=== PATIENT | female | born 1980 | race Caucasian/White ===

== ENCOUNTER 2018-01-02 23:06 | Emergency (ER) | payer BC, MEDICARE ==
[~2018-01-02] VITALS: Ht 170.2 cm; Wt 110.7 kg
[2018-01-02] MEDS ORDERED: ONDANSETRON HCL INJ 2 MG/ML VIAL IV STA (23:40)
[2018-01-02] MEDS ORDERED: SODIUM CHLORIDE 0.9% 1000ML 1,000 ML IV STA (23:40)
[2018-01-02] MEDS ORDERED: PANTOPRAZOLE 40 MG 10ML VIAL IV STA (23:40)
[2018-01-02] MEDS ORDERED: MECLIZINE HCL 12.5 MG TAB PO ONE (23:45)
[2018-01-03 00:28] LABS: BASOPHILS # (AUTO) 0.1 (0.0-0.1); BASOPHILS % 0.4 % (0.0-1.0); EOSINOPHILS # (AUTO) 0.4 (0.0-0.4); EOSINOPHILS % 3.1 % (0.0-6.0); HEMOGLOBIN 13.7 g/dL (12.0-16.0); LYMPHOCYTES # (AUTO) 3.4 (1.0-3.2); LYMPHOCYTES % 29.5 % (18.0-39.1); MEAN CORPUSCULAR HEMOGLOBIN 31.4 pg (28-32); MEAN CORPUSCULAR HGB CONC 33.4 g/dL (31-35); MEAN CORPUSCULAR VOLUME 93.8 fL (81-99); MONOCYTES # (AUTO) 0.6 (0.2-0.8); MONOCYTES % 4.8 % (4.4-11.3); NEUTROPHILS # (AUTO) 7.1 (2.1-6.9); NEUTROPHILS % 61.9 % (38.7-80.0); PLATELET COUNT 250 x10e3/uL (140-360); RED BLOOD COUNT 4.37 x10e6/uL (3.6-5.1); RED CELL DISTRIBUTION WIDTH 13.3 % (11.7-14.4)
--- NOTE | 2018-01-03 00:33 | Diagnostic Imaging Report ---
EXAM: CHEST SINGLE (PORTABLE), AP 1 view INDICATION: Vertigo for 2 days COMPARISON: None FINDINGS: LINES/TUBES: None LUNGS: No consolidations or edema. PLEURA: No effusions or pneumothorax. HEART AND MEDIASTINUM: Normal size and contour. BONES AND SOFT TISSUES: No acute findings. IMPRESSION: No acute thoracic abnormality. Signed by: Dr. Lisa Lara M.D. on 01/03/2018 12:30 AM
[2018-01-03 00:43] LABS: ALANINE AMINOTRANSFERASE 19 IU/L (0-55); ALBUMIN 4.2 g/dL (3.5-5.0); ALBUMIN/GLOBULIN RATIO 1.1 (0.8-2.0); ALKALINE PHOSPHATASE 63 IU/L (40-150); BLOOD UREA NITROGEN 9 mg/dL (7-26); BUN/CREATININE RATIO 9 (6-25); CHLORIDE 106 mmol/L (98-107); CREATINE KINASE 182 IU/L (29-168); CREATININE, SERUM 1.02 mg/dL (0.57-1.11); EST GLOMERULAR FILTRATION RATE > 60 ML/MIN (60-); GLUCOSE 124 mg/dL (74-118); MAGNESIUM 1.9 MG/DL (1.3-2.1); POTASSIUM 3.8 mmol/L (3.5-5.1); SODIUM 144 mmol/L (136-145)
[2018-01-03 00:47] LABS: BILIRUBIN,URINE NEGATIVE (NEGATIVE); CLARITY,URINE CLOUDY (CLEAR); COLOR,URINE YELLOW (YELLOW); KETONES,URINE NEGATIVE (NEGATIVE); LEUKOCYTE ESTERASE ,URINE NEGATIVE (NEGATIVE); NITRITE,URINE NEGATIVE (NEGATIVE); PROTEIN,URINE DIPSTICK TRACE (NEGATIVE); URINE UROBILINOGEN 0.2 mg/dL (0.2 - 1)
[2018-01-03 00:48] LABS: AMORPHOUS SEDIMENT,URINE MANY (FEW); BACTERIA,URINE MODERATE /HPF; EPITHELIAL CELLS,URINE FEW /LPF; PREGNANCY TEST, URINE NEGATIVE (NEGATIVE)
--- NOTE | 2018-01-03 01:26 | Diagnostic Imaging Report ---
Examination: CT head without contrast Clinical Indication: Vertigo. Technique: Transaxial noncontrast images from the skull base through the vertex were obtained. Sagittal and coronal reformatted images were done. Dose modulation, iterative reconstruction, and/or weight based adjustment of the mA/kV was utilized to reduce the radiation dose to as low as reasonably achievable. Comparison: None. Findings: Scalp: No abnormalities. Bones: Intact. No fractures. No blastic or lytic lesions. Brain sulci: Appropriate for patient's age. Ventricles: Normal in size and configuration. No hydrocephalus. Extra-axial space: No abnormalities. Parenchyma: No abnormal densities. No masses, hemorrhage, or acute or chronic cortical based vascular insults. Suprasellar region: No abnormalities. Craniocervical junction: The foramen magnum is patent. No Chiari one malformation. Impression: No intracranial abnormality. Signed by: Dr. Karime Iverson M.D. on 01/03/2018 1:23 AM
[2018-01-03 03:14] LABS: ANION GAP 13.8 mmol/L (8-16); CARBON DIOXIDE 28 mmol/L (22-32)
[2018-01-03] MEDS ORDERED: CEFTRIAXONE SOD 1 GM VIAL IV STA (03:18)
[2018-01-03 04:41] VITALS: BP 114/65
== END 2018-01-03 05:14 | disposition home or self-care (01) ==
LOC: ER 23:06
DX: H81.01 Meniere's disease, right ear (principal); N30.01 Acute cystitis with hematuria
CPT/HCPCS: 36415; 70450; 71045; 80053; 81001; 81025; 82550; 82553; 83735; 84484; 85025; 87086; 96374; 96376; 99284; J0696; J2405; J7030

== ENCOUNTER → 2019-11-15 | Outpatient (CLI) | payer BC ==
[~2019-11-15] MED LIST: NAPROXEN250 MG PO; OMEPRAZOLE40 MG PO; TYLENOL WITH C1 EACH PO; ZOFRAN4 MG PO
--- NOTE | 2019-11-15 10:48 | Diagnostic Imaging Report ---
Ultrasound bilateral lower extremity (nonvascular) History: Enlarged lymph nodes. Comparison: None. Discussion: Grayscale and color images of the bilateral groins were obtained to evaluate for lymphadenopathy. Bilateral elongated oval-shaped lymph nodes are noted with intact fatty simona. Largest on the right measures up to 4.6 cm in length and 0.7 cm in thickness. Largest on the left measures up to 5.1 cm in length and 0.6 cm in thickness. IMPRESSION: Bilateral enlarged inguinal lymph nodes are nonspecific. No suspicious features are noted. Intact fatty simona are noted. Signed by: Tate Melgoza MD on 11/15/2019 10:45 AM
--- NOTE | 2019-11-15 11:37 | Diagnostic Imaging Report ---
Procedure: Ultrasound-guided lymph node fine-needle aspiration COMPARISON: None DISCUSSION: Associate Counsel image was obtained prior to the biopsy. There is a 1.3 x 0.6 x 1 cm lymph node in the right axilla with intact fatty simona. Intact internal vascularity is noted. Adjacent vessels are noted which were avoided during sampling. The procedure including the risks and complications of the procedure were explained to the patient and the patient consented. Under ultrasound guidance, a total of 5 fine needle aspiration biopsy samples were obtained using a 25g needle. The specimens were given to the sleep lab technician in the room. The specimen was adequate for diagnosis. Post sampling imaging demonstrates no acute complication. Patient tolerated the procedure well. IMPRESSION: Successful ultrasound-guided fine needle aspiration biopsy of a right axillary lymph node. There were no immediate complications. Signed by: Tate Melgoza MD on 11/15/2019 11:33 AM
== END ==
LOC: US 08:30
PROVIDERS: ATTEND Family Medicine
DX: R59.0 Localized enlarged lymph nodes (principal)
CPT/HCPCS: 10005; 76882; 88112; 88172; 88173

== ENCOUNTER 2020-02-03 19:09 | Emergency (ER) | payer BC ==
[~2020-02-03] VITALS: Ht 170.2 cm; Wt 124.7 kg
--- OUTSIDE RECORDS SUMMARY | 2020-02-03 19:44 | XMS REPORT | Continuity of Care Document ---
Author Author [facility] t Organization [facility] Address [address] [place] [address] Phone Unavailable Care Team Providers Care Floral Merchandiser Name Role Phone NO, PCP PCP Unavailable Antoine BENSON Attphys Unavailable KAN CORTEZ Attphys Unavailable SWEET A LAIHERON Attphys Unavailable VICKY COBB Admphys Unavailable Payers Payer Name Policy Type Policy Number Effective Date Expiration Date Abelardo zhu [employer] [place] P[employer] [id number] [facility] Problems Condition Name Condition Details Condition Category Status Onset Date Resolution Date Last Treatment Date Treating Clinician Comments Source Abdominal pain Abdominal pain Problem Active [facility] Cholelithiasis Cholelithiasis Problem Active [facility] Obesity Obesity Problem Active [facility] Allergies, Adverse Reactions, Alerts Allergy Name Allergy Type Status Severity Reaction(s) Onset Date Inacti ve Date Treating Clinician Comments Source Sulfa (Sulfonamide Antibiotics) Allergy to Substance Active 2018-01-02 00:00:00 [facility] Clindamycin Allergy to Substance Active 2018-01-02 00:00:00 [facility] adhesive tape Allergy to Substance Active 2018-01-02 00:00: 00 [facility] Medications Ordered Medication Name Filled Medication Name Start Date Stop Da te Current Medication? Ordering Clinician Indication Dosage Frequency Signature (SIG) Comments Components Source Acetaminophen With Codeine (Tylenol With Codeine #3 Ta blet) 1 Each Tablet Acetaminophen With Codeine (Tylenol With Codeine #3 Tablet) 1 Each Tablet Yes 300 Every 4 Hours as needed for Moderate Memo n (4-6) [facility] Naproxen 250 Mg Tablet Naproxen 250 Mg Tablet Yes 500 Twice A Day as needed for Moderate Pain (4-6) [facility] Omeprazole 40 Mg Capsule. Omeprazole 40 Mg Capsule. Yes 40 Daily [facility] Ondansetron Hcl (Zofran*) 4 Mg Tablet Ondansetron Hcl (Zofran*) 4 M g Tablet Yes 4 Every 4 Hours as needed for Nausea [facility] Procedures Procedure Date / Time Performed Performing Clinician Jaida mckeon Laparoscopic cholecystectomy 2019-01-12 00:00:00 MISAEL COBB [facility] US Gallbladder 2019-01-11 00:00:00 DANA KAN [facility] Encounters Start Date/Time End Date/Time Encounter Type Admission Type Attendi [facility] Care Department Encounter ID Source 2019-01-11 18:25:00 2019-01-13 18:43:00 Discharged Inpatient (obs) 1 [facility]NA [facility] [id number] [facility] 2018-01-02 23:06:00 2018-01-03 05:14:00 Departed Emergency Room 1 TORRES PAREKH [facility] [id number] [facility] Results Test Description Test Time Test Comments Results Result Comments Source FNA US GUIDED 1ST LESION 2019-11-15 11:31:00 [place] [address] Patient Name: JANELLE HAYES MR #: [id number] : 1980 Age/Sex: 39/F Req #: [id number] Adm Physician: Ordered by: CORY BENSON DO Report #: [id number] Location: Room/Bed: Procedure: IR/FNA US GUIDED 1ST LESION Exam Date: 11/15/19 Exam Time: 920 REPORT STATUS: Signed Procedure: Ultrasound-guided lymph node fine-needle aspiration COMPARISON: None DISCUSSION: Duster Tender image was obtained prior to the biopsy. There is a 1.3 x 0.6 x 1 cm lymph node in the right axilla with intact fatty simona. Intact internal vascularity is noted. Adjacent vessels are noted which were avoided during sampling. The procedure including the risks and complications of the procedure were explained to the patient and the patient consented. Under ultrasound guidance, a total of 5 fine needle aspiration biopsy samples were obtained using a 25g needle. The specimens were given to the botany technician in the room. The specimen was adequate for diagnosis. Post sampling imaging demonstrates no acute complication. Patient tolerated the procedure well. IMPRESSION: Successful ultrasound-guided fine needle aspiration biopsy of a right axillary lymph node. There were no immediate complications. Signed by: Kylah Melgoza MD on 11/15/2019 11:33 AM Dictated By: KYLAH MELGOZA MD 1133 Transcribed By: ALIREZA on 11/15/19 1133 COPY TO: CORY BENSON DO US EXTREMITY PRINCE NON-VAS 2019-11-15 10:43:00 [place] [address] Patient Name: JANELLE HAYES MR #: [id number] : 1980 Age/Sex: 39/F Req #: [id number] Adm Physician: Ordered by: CORY BENSON DO Report #: [id number] Location: Room/Bed: Procedure: [id number] US/US EXTREMITY PRINCE NON-VAS Exam Date: 11/15/19 Exam Time: 907 REPORT STATUS: Signed Ultrasound bilateral lower extremity (nonvascular) History: Enlarged lymph nodes. Comparison: None. Discussion: Grayscale and color images of the bilateral groins were obtained to evaluate for lymphadenopathy. Bilateral elongated oval-s haped lymph nodes are noted with intact fatty simona. Largest on the right measures up to 4.6 cm in length and 0.7 cm in thickness. Largest on the left measures up to 5.1 cm in length and 0.6 cm in thickness. IMPRESSION: Bilateral enlarged inguinal lymph nodes are nonspecific. No suspicious features are noted. Intact fatty simona are noted. Signed by: Kylah Melgoza MD on 11/15/2019 10:45 AM Dictated By: KYLAH MELGOZA MD 1045 Transcribed By: ALIREZA on 11/15/19 1045 COPY TO: CORY BENSON DO BREAST ULTRASOUND LEFT 2019-10-17 15:55:25 - FRIEDA AST ULTRASOUND LEFTULTRASOUND OF LEFT BREAST: 10/17/2019CLINICAL: Left breast mass. Comparison is made to exam dated 10/17/2019 mammogram - [facility]. Color flow, real-time, and Doppler ultrasound of the left breast were performed. Peña scale images of the real-time examination were reviewed. No abnormalities were seen sonographically in the left breast. IMPRESSION: NEGATIVE There is no sonographic evidence of malignancy. Begin screening mammography at age 40 per current ACR guidelines. Homar Morales M.D. et/:10/17/2019 15:55:25 Entry: - 10/17/2019 16:34:19copy to: Gerson Bell MD, ph: [phone], fax: [phone] Technologist: Juli Schuler , [facility]letter sent: BIRADS 1-2 Combo FU Letter Ultrasound BI-RADS: 1 Negative DIAG MAMM BILATERAL BRANDI CAD DIGITAL 2019-10-17 15:39:17 - DIAG MAMM BILATERAL BRANDI CAD DIGITALBILATERAL FIRST EVER DIGITAL DIAGNOSTIC MAMMOGRAM 3D/2D WITH CAD: 10/17/2019CLINICAL: Left breast mass. Digital breast tomosynthesis was performed in addition to routine CC and MLO views. Current mammographic images were evaluated by either a [employer] M-Vu or a [employer] ImageChecker CAD (computer aided detection system). No prior exams were available for comparison. The tissue of both breasts is predominantly fatty. No suspicious mass, architectural distortion, malignant type calcification, or lymph node abnormality detected. IMPRESSION: INCOMPLETE: ADDITIONAL IMAGING EVALUATION NEEDEDThere is no mammographic abnormality seen in the left breast to correspond with the reported palpable abnormality; however, further workup with ultrasound is recommended which will take place today. Homar Morales M.D. et/:10/17/2019 15:39:17 Entry: - 10/17/2019 16:33:13copy to: Gerson Bell MD, ph: [phone], fax: [phone] Technologist: Juli DURAND, [facility]Mamm[facility] BI-RADS: 0 Incomplete: Additional Imaging Evaluation Needed Sodium Level 2019-01-13 06:21:00 Test Item Sodium Level (test code = 2951-2) 140 136-145 [facility]assium Uxogy1129-13-47 06:21:00* Test Item Value Reference Range Interpretation Comments Potassium Level (test code = 2823-3) 4.6 3.5-5.1 [facility] TempleChloride Eyenn6764-90-72 06:21:00* Test Item Value Reference Range Interpretation Comments Chloride Level (test code = 2075-0) 108 98-107 H [facility] TempleCarbon Dioxide Lnxae1106-38-99 06:21:00* Test Item Value Reference Range Interpretation Comments Carbon Dioxide Level (test code = 2028-9) 23 22-29 [facility] TempleAnion Tss4146-28-55 06:21:00* Test Item Value Reference Range Interpretation Comments Anion Gap (test code = 73261-6) 13.6 8-16 [facility] TempleBlood Urea Hfkmpapv5334-78-02 06:21:00* Test Item Value Reference Range Interpretation Comments Blood Urea Nitrogen (test code = 3094-0) 5 7-26 L [facility] TempleCreatinine2019-10-19 06:21:00* Test Item Value Reference Range Interpretation Comments Creatinine (test code = 2160-0) 0.91 0.57-1.11 [facility] TempleBUN/Creatinine Licue1185-74-43 06:21:00* Test Item Value Reference Range Interpretation Comments BUN/Creatinine Ratio (test code = 3097-3) 5 6-25 L [facility] TempleEstimat Glomerular Filtration Rate 2019-01-13 06:21:00* Test Item Value Reference Range Interpretation Comments Estimat Glomerular Filtration Rate (test code = 840778889) > 60 >60 Ranges were taken from the National Kidney Disease Education Program and the [facility]ney Foundation literature.Reference ranges:60 or greater: Uzlppz63-25 ( for 3 consecutive months): Chronic kidney disease 15 or less: Kidney failureBaylor Scott & White Medical Center – TempleGlucose Psadb2889-67-35 06:21:00* Test Item Value Reference Range Interpretation Comments Glucose Level (test code = QLK4817) 140 74-118 H [facility] TempleCalcium Uhmyp0744-36-99 06:21:00* Test Item Value Reference Range Interpretation Comments Calcium Level (test code = 94044-3) 9.3 8.4-10.2 [facility] TempleTotal Emdqnrwfk6072-62-44 06:21:00* Test Item Value Reference Range Interpretation Comments Total Bilirubin (test code = 1975-2) 0.4 0.2-1.2 [facility] TempleAspartate Amino Transf (AST/SGOT) 2019-01-13 06:21:00* Test Item Value Reference Range Interpretation Comments Aspartate Amino Transf (AST/SGOT) (test code = Aspartate Amino Transf (AST/SGOT)) 91 5-34 H [facility] TempleAlanine Aminotransferase (ALT/SGPT) 2019-01-13 06:21:00* Test Item Value Reference Range Interpretation Comments Alanine Aminotransferase (ALT/SGPT) (test code = 1742-6) 91 0-55 H [facility] TempleTotal Vgbtewd8908-19-04 06:21:00* Test Item Value Reference Range Interpretation Comments Total Protein (test code = 2885-2) 6.8 6.5-8.1 [facility] TempleAlbumin2019-10-19 06:21:00* Test Item Value Reference Range Interpretation Comments Albumin (test code = 1751-7) 3.5 3.5-5.0 [facility] TempleGlobulin2019-10-19 06:21:00* Test Item Value Reference Range Interpretation Comments Globulin (test code = 53399-6) 3.3 2.3-3.5 [facility] TempleAlbumin/Globulin Qfktw2711-27-53 06:21:00 * Test Item Value Reference Range Interpretation Comments Albumin/Globulin Ratio (test code = 1759-0) 1.1 0.8-2.0 [facility] TempleAlkaline Yqpxsdxgioe0292-93-72 06:21:00* Test Item Value Reference Range Interpretation Comments Alkaline Phosphatase (test code = 6768-6) 59 40-150 [facility] TempleWhite Blood Oizgm4645-07-97 06:00:00* Test Item Value Reference Range Interpretation Comments White Blood Count (test code = 6690-2) 13.87 4.8-10.8 H [facility] TempleRed Blood Qcthk5230-52-58 06:00:00* Test Item Value Reference Range Interpretation Comments Red Blood Count (test code = 789-8) 4.15 3.6-5.1 [facility] TempleHemoglobin2019-10-19 06:00:00* Test Item Value Reference Range Interpretation Comments Hemoglobin (test code = 41648-6) 12.9 12.0-16.0 [facility] TempleHematocrit2019-10-19 06:00:00* Test Item Value Reference Range Interpretation Comments Hematocrit (test code = 4544-3) 40.2 34.2-44.1 [facility] TempleMean Corpuscular Aszljr7526-42-16 06:00:00* Test Item Value Reference Range Interpretation Comments Mean Corpuscular Volume (test code = 787-2) 96.9 81-99 [facility] TempleMean Corpuscular Yqvjkoxlpt0692-64-39 06:00:00* Test Item Value Reference Range Interpretation Comments Mean Corpuscular Hemoglobin (test code = 785-6) 31.1 28-32 [facility] TempleMean Corpuscular Hemoglobin Concent 2019-01-13 06:00:00* Test Item Value Reference Range Interpretation Comments Mean Corpuscular Hemoglobin Concent (test code = 786-4) 32.1 31-35 [facility] TempleRed Cell Distribution Arucd9034-12-70 06:00:00* Test Item Value Reference Range Interpretation Comments Red Cell Distribution Width (test code = 88139-6) 13.1 11.7 -14.4 [facility] TemplePlatelet Ejrpw7415-99-31 06:00:00* Test Item Value Reference Range Interpretation Comments Platelet Count (test code = 777-3) 286 140-360 [facility] TempleNeutrophils (%) (Auto)2019-01-13 06:00:00 * Test Item Value Reference Range Interpretation Comments Neutrophils (%) (Auto) (test code = 14504-0) 82.9 38.7-80.0 H [facility] TempleLymphocytes (%) (Auto)2019-01-13 06:00:00 * Test Item Value Reference Range Interpretation Comments Lymphocytes (%) (Auto) (test code = 736-9) 11.9 18.0-39.1 L [facility] TempleMonocytes (%) (Auto)2019-01-13 06:00:00* Test Item Value Reference Range Interpretation Comments Monocytes (%) (Auto) (test code = 5905-5) 4.7 4.4-11.3 [facility] TempleEosinophils (%) (Auto)2019-01-13 06:00:00 * Test Item Value Reference Range Interpretation Comments Eosinophils (%) (Auto) (test code = 713-8) 0.0 0.0-6.0 [facility] TempleBasophils (%) (Auto)2019-01-13 06:00:00* Test Item Value Reference Range Interpretation Comments Basophils (%) (Auto) (test code = 706-2) 0.1 0.0-1.0 [facility] TempleIM GRANULOCYTES %2019-01-13 06:00:00* Test Item Value Reference Range Interpretation Comments IM GRANULOCYTES % (test code = IM GRANULOCYTES %) 0.4 0.0- 1.0 [facility] TempleNeutrophils # (Auto)2019-01-13 06:00:00* Test Item Value Reference Range Interpretation Comments Neutrophils # (Auto) (test code = 751-8) 11.5 2.1-6.9 H [facility] TempleLymphocytes # (Auto)2019-01-13 06:00:00* Test Item Value Reference Range Interpretation Comments Lymphocytes # (Auto) (test code = 35565-4) 1.7 1.0-3.2 [facility] TempleMonocytes # (Auto)2019-01-13 06:00:00* Test Item Value Reference Range Interpretation Comments Monocytes # (Auto) (test code = 742-7) 0.7 0.2-0.8 [facility] TempleEosinophils # (Auto)2019-01-13 06:00:00* Test Item Value Reference Range Interpretation Comments Eosinophils # (Auto) (test code = 711-2) 0.0 0.0-0.4 [facility] TempleBasophils # (Auto)2019-01-13 06:00:00* Test Item Value Reference Range Interpretation Comments Basophils # (Auto) (test code = 704-7) 0.0 0.0-0.1 [facility] TempleAbsolute Immature Granulocyte (auto 2019-01-13 06:00:00* Test Item Value Reference Range Interpretation Comments Absolute Immature Granulocyte (auto (dorina t code = Absolute Immature Granulocyte (auto) 0.05 0-0.1 [facility] TempleLipase2019-10-18 05:27:00* Test Item Value Reference Range Interpretation Comments Lipase (test code = 3040-3) 5 8-78 L [facility] TempleB-Type Natriuretic Bekdpqy1476-91-86 18:54:00* Test Item Value Reference Range Interpretation Comments B-Type Natriuretic Peptide (test code = 19173-0) 37.9 0-100 [facility] TempleUrine HLH4629-40-16 18:51:00* Test Item Value Reference Range Interpretation Comments Urine WBC (test code = 5821-4) NONE 0-5 [facility] TempleUrine HKY2704-40-47 18:51:00* Test Item Value Reference Range Interpretation Comments Urine RBC (test code = 45559-7) NONE 0-5 [facility] TempleUrine Iyfcpgbj7526-86-30 18:51:00* Test Item Value Reference Range Interpretation Comments Urine Bacteria (test code = 76943-7) FEW NONE [facility] TempleUrine Epithelial Onkpe4980-51-10 18:51:00 * Test Item Value Reference Range Interpretation Comments Urine Epithelial Cells (test code = 03857-2) MODERATE NONE [facility] TempleUrine Amorphous Rcnhxebk0464-48-87 18:51:00* Test Item Value Reference Range Interpretation Comments Urine Amorphous Sediment (test code = 8246-1) MODERATE FEW H [facility] TempleCreatine Kinase RZ7062-34-45 18:51:00* Test Item Value Reference Range Interpretation Comments Creatine Kinase MB (test code = 89997-8) 0.60 0-5.0 [facility] TempleTroponin Z7533-34-02 18:51:00* Test Item Value Reference Range Interpretation Comments Troponin I (test code = ROY9429) < 0.001 0-0.300 [facility] TempleCHEST SINGLE (PORTABLE)2019-01-11 18:45:00 [place] [address] Patient Name: JANELLE HAYES MR #: [id number] : 1980 Age/Sex: 39/F Req #: [id number] Adm Physician: Ordered by: DANA NIELSEN, KAN NIELSEN Report #: [id number] Location: ER Room/Bed: Procedure: [id number] D X/CHEST SINGLE (PORTABLE) Exam Date: Exam Time: REPORT STATUS: Signed EXAMINATION: CHEST SINGLE (PORTABLE) COMPARISON: Chest x-ray 12/30/2017 INDICA TION: Right side chest pain ERMD ORDER Y DISCUSSION: Frontal vie w of the chest obtained at 1815 hours. HEART AND MEDIASTINUM: The cardiome diastinal silhouette is unremarkable. LINES: None. LUNGS: The lung s are well inflated and clear. No pneumonia or pulmonary edema. PLEURA: No pleural effusion or pneumothorax. BONES AND SOFT TISSUES: No focal osseous lesion. The soft tissues are normal. IMPRESSION: No acute cardiopulmon ian disease. Signed by: Dr. Halley Jernigan MD on 01/11/2019 6:47 PM Dictated By: HALLEY JERNIGAN MD 46 Transcribed By: ALIREZA on 01/11/191846 COPY TO: KAN CORTEZ Urine Kbii6257-13-04 18:39:00* Test Item Value Reference Range Interpretation Comments Urine Test (test code = 2106-3) NEGATIVE NEGATIVE [facility] TempleUrine Ijgzz7214-39-25 18:38:00* Test Item Value Reference Range Interpretation Comments Urine Color (test code = 5778-6) YELLOW YELLOW [facility] TempleUrine Kkionbl5234-00-96 18:38:00* Test Item Value Reference Range Interpretation Comments Urine Clarity (test code = 08880-6) SL CLOUDY CLEAR [facility] TempleUrine Specific Jyyqhts7485-75-53 18:38:00 * Test Item Value Reference Range Interpretation Comments Urine Specific [place] (test code = 5811-5) 1.015 1.010-1.02 5 [facility] TempleUrine aZ4885-31-81 18:38:00* Test Item Value Reference Range Interpretation Comments Urine pH (test code = 75262-2) 8.5 5-7 [facility] TempleUrine Leukocyte Ioknnzvd6276-76-05 18:38:00* Test Item Value Reference Range Interpretation Comments Urine Leukocyte Esterase (test code = 18966-5) NEGATIVE NEGATIV E [facility] TempleUrine Bqjrzsw1272-43-85 18:38:00* Test Item Value Reference Range Interpretation Comments Urine Nitrite (test code = 02393-5) NEGATIVE NEGATIVE [facility] TempleUrine Cjorrhu4581-68-92 18:38:00* Test Item Value Reference Range Interpretation Comments Urine Protein (test code = 40592-0) NEGATIVE NEGATIVE [facility] TempleUrine Glucose (UA)2019-01-11 18:38:00* Test Item Value Reference Range Interpretation Comments Urine Glucose (UA) (test code = 66579-3) NEGATIVE NEGATIVE [facility] TempleUrine Gysgyiu1539-20-43 18:38:00* Test Item Value Reference Range Interpretation Comments Urine Ketones (test code = 93881-3) NEGATIVE NEGATIVE [facility] TempleUrine Gvgszwrhhbbx9959-65-23 18:38:00* Test Item Value Reference Range Interpretation Comments Urine Urobilinogen (test code = 42893-9) 0.2 0.2-1 [facility] TempleUrine Hxvbiyjtm2198-79-38 18:38:00* Test Item Value Reference Range Interpretation Comments Urine Bilirubin (test code = 1977-8) NEGATIVE NEGATIVE [facility] TempleUrine Stfjf7734-84-59 18:38:00* Test Item Value Reference Range Interpretation Comments Urine Blood (test code = 37423-7) NEGATIVE NEGATIVE [facility] TempleCreatine Xijfal2410-21-95 18:38:00* Test Item Value Reference Range Interpretation Comments Creatine Kinase (test code = 2157-6) 99 29-168 [facility] TempleProthrombin Wfrc9045-01-73 18:32:00* Test Item Value Reference Range Interpretation Comments Prothrombin Time (test code = 5902-2) 14.0 11.9-14.5 [facility] TempleProthromb Time International Ratio 2019-01-11 18:32:00* Test Item Value Reference Range Interpretation Comments Prothromb Time International Ratio (test code = 6301-6) 1.03 Oral Anticoagulant Therapy INR Values:1. Low Intensity Therapy 1.5 - 2.02 . Moderate Intensity Therapy 2.0 - 3.03. High Intensity Therapy(1) 2.5 - 3. 54. High Intensity Therapy(2) 3.0 - 4.05. Panic Value INR > 5.0 [facility] TempleActivated Partial Thromboplast Time 2019-01-11 18:32:00* Test Item Value Reference Range Interpretation Comments Activated Partial Thromboplast Time (test code = 66637-0) 28.6 23.8-35.5 [facility] TempleUS EMORLTPSVOD1468-43-28 17:31:00 [facility] [address] [place] [address] Patient Name: JANELLE HAYES MR #: [id number] : 1980 Age/Sex: 39/F Req #: [id number] Adm Physician: Ordered by: DANA NIELSEN, KAN NIELSEN Report #: [id number] Location: ER Room/Bed: Procedure: [id number] U S/US GALLBLADDER Exam Date: 01/11/19 Exam Time: 1700 REPORT STATUS: Signed HISTORY: Right upper quadrant pain ABD PAIN Y TECHNIQUE: Selected images from limited abdominal ultrasound provided for INTERPRETATION: COMPARISON: No ne. FINDINGS: Pancreas: Poorly visualized due to bowel gas. Li sean: Measures 13.8 cm in sagittal plane. The echotexture is mildly increased. No mass in the visualized portions. Portal Vein: Measures 1.0 cm. Proper dir ectional flow on spectral Doppler interrogation. Intrahepatic bile ducts: No rmal Gallbladder: Present and is filled with gallstones. The largest gallst one measures 2.5 cm. No gallbladder wall thickening or pericholecystic fluid. CBD: 0.3 cm. Right Kidney: 10.6 cm in greatest length. The echotexture is normal. There is no evidence for mass. There is no collecting system dila tation or evidence of obstruction. No renal calculi evident. No adjacent free fluid or fluid collections. Visualized IVC and distal aorta are normal. There is no free fluid. IMPRESSION: Cholelithiasis. No sonographic evidence of acute cholecystitis. Normal biliary tree. Mild steatosis. Signed by: Dr. Halley Jernigan MD on 01/11/2019 5:34 PM Dictated By: HALLEY JERNIGAN MD 33 Transcribed By: ALIREZA on 01/11/191733 COPY TO: KAN CORTEZ Carbon Dioxide Lgnoy4264-62-11 03:15:00* Test Item Value Reference Range Interpretation Comments Carbon Dioxide Level (test code = 2028-9) 28 22-32 [facility] TempleAnion Afe5437-83-08 03:15:00* Test Item Value Reference Range Interpretation Comments Anion Gap (test code = 97000-0) 13.8 8-16 [facility] TempleCT BRAIN PY1440-96-90 01:22:00 [facility] [address] [place] [address] Patient Name: JANELLE HAYES MR #: [id number] : Age/Sex: 37/F Req #: [id number] Adm Physician: Ordered by: TORRES PAREKH MD Report #: [id number] Location: ER Room/Bed: Procedure: [id number] CT/CT BRAIN WO Exam Date: 01/02 Exam Time: 2355 REPORT STATUS: Signed Ex amination: CT head without contrast Clinical Indication: Vertigo. Technique: Transaxial noncontrast images from the skull base through the vertex were obt ained. Sagittal and coronal reformatted images were done. Dose modulation, ite rative reconstruction, and/or weight based adjustment of the mA/kV was utilize d to reduce the radiation dose to as low as reasonably achievable. Comparis on: None. Findings: Scalp: No abnormalities. Bones: Intact. No fract ures. No blastic or lytic lesions. Brain sulci: Appropriate for patient's age. Ventricles: Normal in size and configuration. No hydrocephalus. Extra-axial space: No abnormalities. Parenchyma: No abnormal densitie s. No masses, hemorrhage, or acute or chronic cortical based vascular insults. Suprasellar region: No abnormalities. Craniocervical junction: The desmond en magnum is patent. No Chiari one malformation. Impression: No int racranial abnormality. Signed by: Dr. Warren Iverson M.D. on 01/03/2018 1 :23 AM Dictated By: WARREN MICHAEL MD 2 Transcribed By: ALIREZA on 01/03 COPY TO: TORRES PAREKH MD Sodium Velal3495-11-69 00:58:00* Test Item Value Reference Range Interpretation Comments Sodium Level (test code = 2951-2) 144 136-145 [facility] Xpskl6594-07-15 00:58:00* Test Item Value Reference Range Interpretation Comments Potassium Level (test code = 2823-3) 3.8 3.5-5.1 [facility] TempleChloride Lppir9170-28-20 00:58:00* Test Item Value Reference Range Interpretation Comments Chloride Level (test code = 2075-0) 106 98-107 [facility] TempleBlood Urea Uvletgke1607-94-07 00:58:00* Test Item Value Reference Range Interpretation Comments Blood Urea Nitrogen (test code = 3094-0) 9 7-26 [facility] TempleCreatinine2018-10-09 00:58:00* Test Item Value Reference Range Interpretation Comments Creatinine (test code = 2160-0) 1.02 0.57-1.11 [facility] TempleBUN/Creatinine Gxgfg2568-58-26 00:58:00* Test Item Value Reference Range Interpretation Comments BUN/Creatinine Ratio (test code = 3097-3) 9 6-25 [facility] TempleEstimat Glomerular Filtration Rate 2018-01-03 00:58:00* Test Item Value Reference Range Interpretation Comments Estimat Glomerular Filtration Rate (test code = 782404644) 60- >60 Ranges were taken from the National Kidney Disease Education Program and the [facility] Foundation literature.Reference ranges:60 or greater: Ptneyp11-04 ( for 3 consecutive months): Chronic kidney disease 15 or less: Kidney failureB[facility] & [facility] – TempleGlucose Oaejn0362-24-68 00:58:00* Test Item Value Reference Range Interpretation Comments Glucose Level (test code = CCD5093) 124 74-118 H [facility] TempleCalcium Nmfnt7630-24-81 00:58:00* Test Item Value Reference Range Interpretation Comments Calcium Level (test code = 44251-4) Results called to [] at 0057 on 01/03/18 by Silvia Nava. RB OK. 8.4-10.2 [facility] TempleMagnesium Aknxn2396-11-56 00:58:00* Test Item Value Reference Range Interpretation Comments Magnesium Level (test code = 73266-5) 1.9 1.3-2.1 [facility] TempleTotal Fcqvjesoo5385-06-23 00:58:00* Test Item Value Reference Range Interpretation Comments Total Bilirubin (test code = 1975-2) 0.3 0.2-1.2 [facility] TempleAspartate Amino Transf (AST/SGOT) 2018-01-03 00:58:00* Test Item Value Reference Range Interpretation Comments Aspartate Amino Transf (AST/SGOT) (test code = Aspartate Amino Transf (AST/SGOT)) 21 5-34 [facility] TempleAlanine Aminotransferase (ALT/SGPT) 2018-01-03 00:58:00* Test Item Value Reference Range Interpretation Comments Alanine Aminotransferase (ALT/SGPT) (test code = 1742-6) 19 0-55 [facility] TempleTotal Syxflaa6280-23-94 00:58:00* Test Item Value Reference Range Interpretation Comments Total Protein (test code = 2885-2) 8.2 6.5-8.1 H [facility] TempleAlbumin2018-10-09 00:58:00* Test Item Value Reference Range Interpretation Comments Albumin (test code = 1751-7) 4.2 3.5-5.0 [facility] TempleGlobulin2018-10-09 00:58:00* Test Item Value Reference Range Interpretation Comments Globulin (test code = 80467-1) 4.0 2.3-3.5 H [facility] TempleAlbumin/Globulin Dwifo1056-65-05 00:58:00 * Test Item Value Reference Range Interpretation Comments Albumin/Globulin Ratio (test code = 1759-0) 1.1 0.8-2.0 [facility] TempleAlkaline Bwmgyuhcwlx8005-13-72 00:58:00* Test Item Value Reference Range Interpretation Comments Alkaline Phosphatase (test code = 6768-6) 63 40-150 [facility] TempleCreatine Wuwyob4246-12-24 00:58:00* Test Item Value Reference Range Interpretation Comments Creatine Kinase (test code = 2157-6) 182 29-168 [facility] TempleCreatine Kinase BI3522-19-24 00:58:00* Test Item Value Reference Range Interpretation Comments Creatine Kinase MB (test code = 23272-9) 0.80 0-5.0 [facility] TempleTroponin W8847-40-97 00:58:00* Test Item Value Reference Range Interpretation Comments Troponin I (test code = YZW1639) -0.001 0-0.300 [facility] TempleUrine Atmqh1625-20-28 00:48:00* Test Item Value Reference Range Interpretation Comments Urine Color (test code = 5778-6) YELLOW YELLOW [facility] TempleUrine Hphqrjs6192-59-42 00:48:00* Test Item Value Reference Range Interpretation Comments Urine Clarity (test code = 86069-5) CLOUDY CLEAR H [facility] TempleUrine Specific Cetyjcj7149-73-63 00:48:00 * Test Item Value Reference Range Interpretation Comments Urine Specific [place] (test code = 5811-5) 1.015 1.010-1.02 5 [facility] TempleUrine pO0282-75-29 00:48:00* Test Item Value Reference Range Interpretation Comments Urine pH (test code = 92510-7) 8 5-7 H [facility] TempleUrine Leukocyte Luupdpbw7484-57-06 00:48:00* Test Item Value Reference Range Interpretation Comments Urine Leukocyte Esterase (test code = 5799-2) NEGATIVE NEGATIVE [facility] TempleUrine Stzbgot4385-17-39 00:48:00* Test Item Value Reference Range Interpretation Comments Urine Nitrite (test code = 80208-4) NEGATIVE NEGATIVE [facility] TempleUrine Eedvyth1279-32-94 00:48:00* Test Item Value Reference Range Interpretation Comments Urine Protein (test code = 5804-0) TRACE NEGATIVE H [facility] TempleUrine Glucose (UA)2018-01-03 00:48:00* Test Item Value Reference Range Interpretation Comments Urine Glucose (UA) (test code = 2349-9) NEGATIVE NEGATIVE [facility] TempleUrine Zxpgdqt2193-22-40 00:48:00* Test Item Value Reference Range Interpretation Comments Urine Ketones (test code = 24711-4) NEGATIVE NEGATIVE [facility] Gtbaumlobcca7134-85-94 00:48:00* Test Item Value Reference Range Interpretation Comments Urine Urobilinogen (test code = 70742-1) 0.2 0.2-1 [facility] TempleUrine Xmmeovjft0460-23-87 00:48:00* Test Item Value Reference Range Interpretation Comments Urine Bilirubin (test code = 1978-6) NEGATIVE NEGATIVE [facility] TempleUrine Pfyci1998-28-39 00:48:00* Test Item Value Reference Range Interpretation Comments Urine Blood (test code = 62872-3) NEGATIVE NEGATIVE [facility] TempleUrine CWG6235-70-12 00:48:00* Test Item Value Reference Range Interpretation Comments Urine WBC (test code = 5821-4) 6-10 0-5 H [facility] TempleUrine LLK2422-17-49 00:48:00* Test Item Value Reference Range Interpretation Comments Urine RBC (test code = 41724-6) 6-10 0-5 H [facility] TempleUrine Pvkbxzrl8436-98-02 00:48:00* Test Item Value Reference Range Interpretation Comments Urine Bacteria (test code = 78501-4) MODERATE NONE H [facility] TempleUrine Epithelial Kikeh3776-26-30 00:48:00 * Test Item Value Reference Range Interpretation Comments Urine Epithelial Cells (test code = 83005-0) FEW NONE [facility] TempleUrine Amorphous Wnerkgcd5623-65-66 00:48:00* Test Item Value Reference Range Interpretation Comments Urine Amorphous Sediment (test code = 8246-1) MANY FEW H [facility] TempleUrine Gpud6517-04-60 00:48:00* Test Item Value Reference Range Interpretation Comments Urine Test (test code = 2106-3) NEGATIVE NEGATIVE [facility] TempleWhite Blood Bgbex8328-38-79 00:31:00* Test Item Value Reference Range Interpretation Comments White Blood Count (test code = 6690-2) 11.51 4.8-10.8 H [facility] TempleRed Blood Blwbi8292-29-17 00:31:00* Test Item Value Reference Range Interpretation Comments Red Blood Count (test code = 789-8) 4.37 3.6-5.1 [facility] TempleHemoglobin2018-10-09 00:31:00* Test Item Value Reference Range Interpretation Comments Hemoglobin (test code = 71974-8) 13.7 12.0-16.0 [facility] TempleHematocrit2018-10-09 00:31:00* Test Item Value Reference Range Interpretation Comments Hematocrit (test code = 4544-3) 41.0 34.2-44.1 [facility] TempleMean Corpuscular Hqusyz6130-44-14 00:31:00* Test Item Value Reference Range Interpretation Comments Mean Corpuscular Volume (test code = 787-2) 93.8 81-99 [facility] TempleMean Corpuscular Zlqgysvhlo4984-42-92 00:31:00* Test Item Value Reference Range Interpretation Comments Mean Corpuscular Hemoglobin (test code = 785-6) 31.4 28-32 [facility] TempleMean Corpuscular Hemoglobin Concent 2018-01-03 00:31:00* Test Item Value Reference Range Interpretation Comments Mean Corpuscular Hemoglobin Concent (test code = 786-4) 33.4 31-35 [facility] TempleRed Cell Distribution Agapz3593-02-39 00:31:00* Test Item Value Reference Range Interpretation Comments Red Cell Distribution Width (test code = 42804-6) 13.3 11.7 -14.4 [facility] TemplePlatelet Cfanz6648-79-08 00:31:00* Test Item Value Reference Range Interpretation Comments Platelet Count (test code = 777-3) 250 140-360 [facility] TempleNeutrophils (%) (Auto)2018-01-03 00:31:00 * Test Item Value Reference Range Interpretation Comments Neutrophils (%) (Auto) (test code = 54672-1) 61.9 38.7-80.0 [facility] TempleLymphocytes (%) (Auto)2018-01-03 00:31:00 * Test Item Value Reference Range Interpretation Comments Lymphocytes (%) (Auto) (test code = 736-9) 29.5 18.0-39.1 [facility] TempleMonocytes (%) (Auto)2018-01-03 00:31:00* Test Item Value Reference Range Interpretation Comments Monocytes (%) (Auto) (test code = 5905-5) 4.8 4.4-11.3 [facility] TempleEosinophils (%) (Auto)2018-01-03 00:31:00 * Test Item Value Reference Range Interpretation Comments Eosinophils (%) (Auto) (test code = 713-8) 3.1 0.0-6.0 [facility] TempleBasophils (%) (Auto)2018-01-03 00:31:00* Test Item Value Reference Range Interpretation Comments Basophils (%) (Auto) (test code = 706-2) 0.4 0.0-1.0 [facility] TempleIM GRANULOCYTES %2018-01-03 00:31:00* Test Item Value Reference Range Interpretation Comments IM GRANULOCYTES % (test code = IM GRANULOCYTES %) 0.3 0.0- 1.0 [facility] TempleNeutrophils # (Auto)2018-01-03 00:31:00* Test Item Value Reference Range Interpretation Comments Neutrophils # (Auto) (test code = 751-8) 7.1 2.1-6.9 H [facility] TempleLymphocytes # (Auto)2018-01-03 00:31:00* Test Item Value Reference Range Interpretation Comments Lymphocytes # (Auto) (test code = 79055-7) 3.4 1.0-3.2 H [facility] TempleMonocytes # (Auto)2018-01-03 00:31:00* Test Item Value Reference Range Interpretation Comments Monocytes # (Auto) (test code = 742-7) 0.6 0.2-0.8 [facility] TempleEosinophils # (Auto)2018-01-03 00:31:00* Test Item Value Reference Range Interpretation Comments Eosinophils # (Auto) (test code = 711-2) 0.4 0.0-0.4 [facility] TempleBasophils # (Auto)2018-01-03 00:31:00* Test Item Value Reference Range Interpretation Comments Basophils # (Auto) (test code = 704-7) 0.1 0.0-0.1 [facility] TempleAbsolute Immature Granulocyte (auto 2018-01-03 00:31:00* Test Item Value Reference Range Interpretation Comments Absolute Immature Granulocyte (auto (dorina t code = Absolute Immature Granulocyte (auto) 0.03 0-0.1 [facility] TempleCHEST SINGLE (PORTABLE)2018-01-03 00:29:00 [place] [address] Patient Name: JANELLE HAYES MR #: [id number] : 1980 Age/Sex: 37/F Req #: [id number] [facility] Physician: Ordered by: TORRES PAREKH MD Report #: [id number] Location: ER Room/Bed: Procedure: [id number] DX/CHEST SINGLE (PORTABLE) Exam Date: 01/02/18 Exam Time: 2355 REPORT STATUS: Signed EXAM: CHEST SINGLE (PORTABLE), AP 1 view INDICATION: Vertigo for 2 d ays COMPARISON: None FINDINGS: LINES/TUBES: None LUNGS: No consoli dations or edema. PLEURA: No effusions or pneumothorax. HEART AND MED IASTINUM: Normal size and contour. BONES AND SOFT TISSUES: No acute finding s. IMPRESSION: No acute thoracic abnormality. Signed by: Dr. Ashkan Lara M.D. on 01/03/2018 12:30 AM Dictated By: ASHKAN LARA MD Transcribed By: ALIREZA on 01/03/1829 COPY TO: TORRES PAREKH MD
[2020-02-03] MEDS ORDERED: ACETAMIN/BUTALBITAL/CAFFEINE TAB PO ONE (20:00)
[2020-02-03] MEDS ORDERED: DIPHENHYDRAMINE HCL INJ 50 MG/ML VIAL IV ONE (20:00)
[2020-02-03] MEDS ORDERED: METOCLOPRAMIDE HCL 10 MG/2ML VIAL IV ONE (20:00)
--- NOTE | 2020-02-03 20:09 | NUR ---
PT TO CT AT THIS TIME.
--- NOTE | 2020-02-03 20:13 | Emergency Department Note ---
History of Present Illnes History of Present Illness Chief Complaint: Hypertension History of Present Illness This is a 40 year old female SHE WAS TAKING A BATH AT HOME AND THEN SHE STUCK HER HEAD UNDER THE WATER AND WHEN SHE CAME OUT OF THE WATER, HER HEAD STARTED TO HURT A LOT AND HER EYES STARTED TO BURN WELL, SHE FEELS LIKE HER VISION IS BLURRY, STATES IT IS NOT THE WORSE RAMIREZ OF HER LIFE BUT IT STILL HURTS, PT HAS H/O MIGRAINES . Historian: Patient Arrival Mode: Car Onset (how long ago): hour(s) (1) Location: HEAD, EYES Quality: HEADACHE, BURNING SENSATION TO EYES Radiation: Reports non-radiation Severity: moderate Onset quality: sudden Duration (how long): hour(s) (1) Timing of current episode: constant Progression: unchanged Chronicity: new Context: Denies recent illness, Denies recent surgery Relieving factors: none Exacerbating factors: none Associated symptoms: Reports denies other symptoms Treatments prior to arrival: none Past Medical/Family History Physician Review I have reviewed the patient's past medical and family history. Any updates have been documented here. Past Medical History Recent Fever: No Clinical Suspicion of Infectio: No New/Unexplained Change in Ment: No Past Medical History: Hypertension, Migraines Other Medical History: HX OF GALLSTONES MORBID OBESITY VERTIGO Past Surgical History: Cholecysctectomy, Tubal Ligation, Lumpectomy Other Surgery: LUMPECTOMY TO LT BREAST: DNC X 2 Social History Smoking Cessation: Never Smoker Counseling Performed: No Alcohol Use: None Any Illegal Drug Use: No Physically hurt or threatened: No Other Last Tetanus: UNKNOWN Any Pre-Existing Lines (PICC,: No Review of Systems Review of Systems Constitutional: Reports no symptoms EENTM: Reports as per HPI Cardiovascular: Reports no symptoms Respiratory: Reports no symptoms Gastrointestinal: Reports no symptoms Genitourinary: Reports no symptoms Musculoskeletal: Reports no symptoms Integumentary: Reports no symptoms Neurological: Reports as per HPI Psychological: Reports no symptoms Endocrine: Reports no symptoms Hematological/Lymphatic: Reports no symptoms Physical Exam Related Data Allergies: Coded Allergies: Sulfa (Sulfonamide Antibiotics) (Verified Allergy, Unknown, 01/02/18) adhesive tape (Verified Allergy, Unknown, 01/02/18) clindamycin (Verified Allergy, Unknown, 01/02/18) Triage Vital Signs Vital Signs Date Time Temp Pulse Resp B/P (MAP) Pulse Ox O2 Delivery O2 Flow Rate FiO2 02/03/20 19:35 98.6 95 20 151/113 100 Room Air Vital signs reviewed: Yes Physical Exam CONSTITUTIONAL Constitutional: Present well-developed, Present well-nourished; Absent distressed HENT HENT: Present normocephalic, Present atraumatic, Present oropharynx clear/moist, Present nose normal HENT L/R: Present left ext ear normal, Present right ext ear normal EYES Eyes: Reports PERRL, Reports other (MILD ERYTHEMA OF CONJUCTIVA, EYES MILDLY RED(BLOODSHOT)) NECK Neck: Present ROM normal PULMONARY Pulmonary: Present effort normal, Present breath sounds normal CARDIOVASCULAR Cardiovascular: Present regular rhythm, Present heart sounds normal, Present capillary refill normal, Present normal rate GASTROINTESTINAL Abdominal: Present soft, Present nontender, Present bowel sounds normal GENITOURINARY Genitourinary: Present exam deferred SKIN Skin: Present warm, Present dry MUSCULOSKELETAL Musculoskeletal: Present ROM normal NEUROLOGICAL Neurological: Present alert, Present oriented x 3, Present no gross motor or sensory deficits PSYCHOLOGICAL Psychological: Present mood/affect normal, Present judgement normal Results Laboratory Laboratory Laboratory Tests Test 02/03/20 20:00 White Blood Count 10.98 x10e3/uL (4.8-10.8) Red Blood Count 4.12 x10e6/uL (3.6-5.1) Hemoglobin 12.8 g/dL (12.0-16.0) Hematocrit 39.2 % (34.2-44.1) Mean Corpuscular Volume 95.1 fL (81-99) Mean Corpuscular Hemoglobin 31.1 pg (28-32) Mean Corpuscular Hemoglobin Concent 32.7 g/dL (31-35) Red Cell Distribution Width 12.5 % (11.7-14.4) Platelet Count 310 x10e3/uL (140-360) Neutrophils (%) (Auto) 59.4 % (38.7-80.0) Lymphocytes (%) (Auto) 30.6 % (18.0-39.1) Monocytes (%) (Auto) 6.0 % (4.4-11.3) Eosinophils (%) (Auto) 3.2 % (0.0-6.0) Basophils (%) (Auto) 0.4 % (0.0-1.0) Neutrophils # (Auto) 6.5 (2.1-6.9) Lymphocytes # (Auto) 3.4 (1.0-3.2) Monocytes # (Auto) 0.7 (0.2-0.8) Eosinophils # (Auto) 0.4 (0.0-0.4) Basophils # (Auto) 0.0 (0.0-0.1) Absolute Immature Granulocyte (auto 0.04 x10e3/uL (0-0.1) Sodium Level 139 mmol/L (136-145) Potassium Level 4.1 mmol/L (3.5-5.1) Chloride Level 104 mmol/L (98-107) Carbon Dioxide Level 26 mmol/L (22-29) Anion Gap 13.1 mmol/L (8-16) Blood Urea Nitrogen 14 mg/dL (7-26) Creatinine 1.05 mg/dL (0.57-1.11) Estimat Glomerular Filtration Rate 58 ML/MIN (60-) BUN/Creatinine Ratio 13 (6-25) Glucose Level 115 mg/dL (74-118) Calcium Level 9.6 mg/dL (8.4-10.2) Total Bilirubin 0.2 mg/dL (0.2-1.2) Aspartate Amino Transf (AST/SGOT) 17 IU/L (5-34) Alanine Aminotransferase (ALT/SGPT) 19 IU/L (0-55) Alkaline Phosphatase 57 IU/L (40-150) Total Protein 7.4 g/dL (6.5-8.1) Albumin 4.1 g/dL (3.5-5.0) Globulin 3.3 g/dL (2.3-3.5) Albumin/Globulin Ratio 1.2 (0.8-2.0) Lab results reviewed: Yes Imaging Imaging results reviewed: Yes Impressions Procedure: [id number] CT/CT BRAIN WO Exam Date: 02/03/20 Exam Time: 1999 REPORT STATUS: Signed EXAMINATION: Head CT without contrast. HISTORY:Headache, blurred vision and elevated blood pressure. COMPARISON:CT brain from 01/02/2018. TECHNIQUE: Multidetector axial images were obtained from the foramen magnum to the vertex without contrast. The images were reconstructed using brain and bone algorithms. Thin section brain images were reformatted into coronal and sagittal planes. Dose modulation, iterative reconstruction, and/or weight based adjustment of the mA/kV was utilized to reduce the radiation dose to as low as reasonably achievable. Intravenous contrast: None IMAGE QUALITY: Acceptable. FINDINGS: Skull/scalp: No lytic or blastic. lesions. No surgical changes. Parenchyma: No abnormal density. No acute hemorrhage, mass or acute major vascular territorial infarct. Arteries: No density suggestive of thrombosis. Dural sinuses: No abnormal density suggestive of thrombosis. Ventricles: No hydrocephalus or displacement. Extra-axial spaces: No abnormal density. Brain volume: Normal for age. Craniocervical junction: No mass, Chiari malformation, or basilar invagination. Sella: No mass. Paranasal/mastoid sinuses: Imaged portions unremarkable. IMPRESSION: No intracranial abnormality. Signed by: Dr. Nereida Trejo M.D. on 02/03/2020 8:25 PM Dictated By: NEREIDA TREJO MD 24 Transcribed By: ALIREZA on 02/03/202024 COPY TO: JIAN GUILLEN MD~ Procedures 12 Lead ECG Interpretation ECG Interpretation : ECG: ECG 1 [employer] Service Att[employer]: Interpreted by ED physician Date: Feb 03, 2020 Time: 19:44 Rhythm: sinus rhythm Rate: normal BPM: 95 QRS axis: normal ST segments normal: Yes T waves normal: Yes Other findings: no other findings Clinical Impression: normal ECG Assessment & Plan Medical Decision Making MDM PT WITH HEADACHE AND EYE IRRITATION CBC, CMP, CT BRAIN ORDERED TO EVAL FOR INTRACRANIAL MASS, SUBDURAL BLEED, ELECTROLYTE ABNORMALITY FIORICET 1 PO ORDERED BENADRYL 25 MG IV ORDERED REGLAN 10 MG IV ORDERED Reassessment Reassessment time: 21:28 Reassessment HEADACHE ALMOST RESOLVED AT THIS TIME PHOTOPHOBIA HAS RESOLVED COMPLETELY Assessment & Plan Final Impression: (1) Migraine Depart Disposition: HOME, SELF-CARE Last Vital Signs Date Time Temp Pulse Resp B/P (MAP) Pulse Ox O2 Delivery O2 Flow Rate FiO2 02/03/20 19:35 98.6 95 20 151/113 100 Room Air Home Meds Reported Medications Acetaminophen With Codeine (TYLENOL WITH CODEINE #3 TABLET) 1 Each Tablet, 300 MG PO Q4HR PRN for MODERATE PAIN (4-6), TAB 01/13/19 Omeprazole (OMEPRAZOLE) 40 Mg Capsule., 40 MG PO DAILY 01/13/19 Naproxen (NAPROXEN) 250 Mg Tablet, 500 MG PO BID PRN for MODERATE PAIN (4-6), TAB 01/13/19 Ondansetron Hcl* (ZOFRAN*) 4 Mg Tablet, 4 MG PO Q4HR PRN for NAUSEA 01/13/19 Medications in the ED Diphenhydramine HCl 25 mg NOW ONCE IV ; Start 02/03/20 at 20:00; Stop 02/03/20 at 20:01 Metoclopramide HCl 10 mg ONCE ONCE IV ; Start 02/03/20 at 20:00; Stop 02/03/20 at 20:01 Acetaminophen/ Butalbital/ Caffeine 1 ea ONCE ONCE PO ; Start 02/03/20 at 20:00; Stop 02/03/20 at 20:01 JIAN GUILLEN MD Feb 03, 2020 20:13
[2020-02-03 20:15] LABS: BASOPHILS % 0.4 % (0.0-1.0); EOSINOPHILS # (AUTO) 0.4 (0.0-0.4); EOSINOPHILS % 3.2 % (0.0-6.0); HEMATOCRIT 39.2 % (34.2-44.1); HEMOGLOBIN 12.8 g/dL (12.0-16.0); LYMPHOCYTES # (AUTO) 3.4 (1.0-3.2); LYMPHOCYTES % 30.6 % (18.0-39.1); MEAN CORPUSCULAR HEMOGLOBIN 31.1 pg (28-32); MEAN CORPUSCULAR HGB CONC 32.7 g/dL (31-35); MEAN CORPUSCULAR VOLUME 95.1 fL (81-99); MONOCYTES # (AUTO) 0.7 (0.2-0.8); NEUTROPHILS # (AUTO) 6.5 (2.1-6.9); NEUTROPHILS % 59.4 % (38.7-80.0); PLATELET COUNT 310 x10e3/uL (140-360); RED BLOOD COUNT 4.12 x10e6/uL (3.6-5.1); RED CELL DISTRIBUTION WIDTH 12.5 % (11.7-14.4)
--- NOTE | 2020-02-03 20:29 | Diagnostic Imaging Report ---
EXAMINATION: Head CT without contrast. HISTORY:Headache, blurred vision and elevated blood pressure. COMPARISON:CT brain from 01/02/2018. TECHNIQUE: Multidetector axial images were obtained from the foramen magnum to the vertex without contrast. The images were reconstructed using brain and bone algorithms. Thin section brain images were reformatted into coronal and sagittal planes. Dose modulation, iterative reconstruction, and/or weight based adjustment of the mA/kV was utilized to reduce the radiation dose to as low as reasonably achievable. Intravenous contrast: None IMAGE QUALITY: Acceptable. FINDINGS: Skull/scalp: No lytic or blastic. lesions. No surgical changes. Parenchyma: No abnormal density. No acute hemorrhage, mass or acute major vascular territorial infarct. Arteries: No density suggestive of thrombosis. Dural sinuses: No abnormal density suggestive of thrombosis. Ventricles: No hydrocephalus or displacement. Extra-axial spaces: No abnormal density. Brain volume: Normal for age. Craniocervical junction: No mass, Chiari malformation, or basilar invagination. Sella: No mass. Paranasal/mastoid sinuses: Imaged portions unremarkable. IMPRESSION: No intracranial abnormality. Signed by: Dr. Nereida Finney M.D. on 02/03/2020 8:25 PM
[2020-02-03 20:36] LABS: ALBUMIN 4.1 g/dL (3.5-5.0); ALBUMIN/GLOBULIN RATIO 1.2 (0.8-2.0); ANION GAP 13.1 mmol/L (8-16); CALCIUM 9.6 mg/dL (8.4-10.2); CREATININE, SERUM 1.05 mg/dL (0.57-1.11); POTASSIUM 4.1 mmol/L (3.5-5.1)
[2020-02-03] MEDS ORDERED: KETOROLAC TROMETHAMINE 30 MG/ML VIAL IV STA (20:39)
[2020-02-03] MEDS ORDERED: KETOROLAC TROMETHAMINE 30 MG/ML VIAL ONE (20:49)
[2020-02-03 21:45] VITALS: BP 102/51
--- NOTE | 2020-02-04 17:12 | NUR ---
chart accessed, [facility] pharmacy asking for verification
== END 2020-02-03 21:47 | disposition home or self-care (01) ==
LOC: ER 19:42
DX: G43.909 Migraine, unspecified, not intractable, without status migrainosus (principal); I10 Essential (primary) hypertension; E66.01 Morbid (severe) obesity due to excess calories
CPT/HCPCS: 36415; 70450; 80053; 85025; 93005; 99284; J1200; J1885; J2765

== ENCOUNTER 2020-02-10 05:57 | Emergency (ER) | payer BC ==
[~2020-02-10] VITALS: Ht 170.2 cm; Wt 124.7 kg
[2020-02-10] MEDS ORDERED: KETOROLAC TROMETHAMINE 30 MG/ML VIAL IV STA (06:10)
[2020-02-10] MEDS ORDERED: MORPHINE SULFATE 2 MG/ML SYR 1ML IV STA (06:10)
[2020-02-10] MEDS ORDERED: SODIUM CHLORIDE 0.9% 1000ML 1,000 ML IV STA (06:10)
[2020-02-10] MEDS ORDERED: ONDANSETRON HCL INJ 2MG/ML 2ML 2 MG/ML VIAL IV STA (06:10)
--- OUTSIDE RECORDS SUMMARY | 2020-02-10 06:19 | XMS REPORT | Continuity of Care Document ---
Author Author [facility] t Organization [facility] Address [address] [place] [address] Phone Unavailable Care Team Providers Care Project Admin Name Role Phone DO CORY BENSON PCP King GUILLEN Attphys Unavailable Antoine BENSON Attphys Unavailable KAN CORTEZ Attphys Unavailable Ramon PAREKH Attphys Unavailable VICKY COBB Admphys Unavailable Payers Payer Name Policy Type Policy Number Effective Date Expiration Date [facility] [id number] 2019 00:00:00 [facility] Problems Condition Name Condition Details Condition Category Status Onset Date Resolution Date Last Treatment Date Treating Clinician Comments Source Abdominal pain Abdominal pain Problem Active [facility] Cholelithiasis Cholelithiasis Problem Active [facility] Obesity Obesity Problem Active [facility] Migraine headache Problem Active [facility] Allergies, Adverse Reactions, Alerts Allergy Name Allergy Type Status Severity Reaction(s) Onset Date Inacti ve Date Treating Clinician Comments Source Sulfa (Sulfonamide Antibiotics) Allergy to substance Active 2018-01-02 00:00:00 [facility] Clindamycin Allergy to substance Active 2018-01-02 00:00:00 [facility] adhesive tape Allergy to substance Active 2018-01-02 00:00: 00 [facility] Social History Social Habit Start Date Stop Date Quantity Comments Source Sex Assigned At 1980 00:00:00 1980 00:00:00 Female [facility] Medications Ordered Medication Name Filled Medication Name Start Date Stop Da te Current Medication? Ordering Clinician Indication Dosage Frequency Signature (SIG) Comments Components Source Acetaminophen With Codeine (Tylenol With Codeine #3 Ta blet) 1 Each TABLET Acetaminophen With Codeine (Tylenol With Codeine #3 Tablet) 1 Each TABLET Yes 300 Every 4 Hours as needed for Moderate Memo n (4-6) [facility] Naproxen Naproxen Yes 500 Twice A Day as needed for Moderate Pain (4-6) [facility] Omeprazole Omeprazole Yes 40 Daily [facility] Ondansetron Hcl (Zofran*) 4 Mg TABLET Ondansetron Hcl (Zofran*) 4 M g TABLET Yes 4 Every 4 Hours as needed for Nausea [facility] Vital Signs Vital Name Observation Time Observation Value Comments Source BP Systolic 2020-02-03 21:45:00 102 mm[Hg] [facility] BP Diastolic 2020-02-03 21:45:00 51 mm[Hg] [facility] Oxygen saturation by Pulse oximetry 2020-02-03 21:45:00 100 /min [facility] Weight 2020-02-03 19:35:00 275 [lb_av] [facility] BMI (Body Mass Index) 2020-02-03 19:35:00 43.1 kg/m2 [facility] Procedures Procedure Date / Time Performed Performing Clinician [facility] e Computed tomography of brain without radiopaque contrast 2020-01 00:00:00 [facility] Limited non-vascular ultrasound of extremity 2019-11-15 00:00:00 [facility] Plan of Care Planned Activity Planned Date Details Comments Source Instructions Headache - Migraine (Adult) [facility] Encounters Start Date/Time End Date/Time Encounter Type Admission Type Attendi [facility] Facility Care Department Encounter ID Source 2020-02-03 19:42:00 2020-02-03 21:47:00 Departed Emergency Room 1 JIAN GUILLEN [facility] [id number] [facility] 2019-11-15 09:30:00 2019-11-15 09:30:00 Registered Clinic 3 BALDEVCORY [facility] [id number] [facility] 2019-01-11 18:25:00 2019-01-13 18:43:00 Discharged Inpatient (obs) 1 KAN CORTEZ [facility] [id number] [facility] 2018-01-02 23:06:00 2018-01-03 05:14:00 Departed Emergency Room 1 TORRES PAREKH [facility] [id number] [facility] Results Test Description Test Time Test Comments Results Result Comments Source CT BRAIN WO 2020-02-03 20:23:00 [facility] : 1980 Sex: F [place] [address] Patient Name: JANELLE HAYES MR #: [id number] : 1980 Age/Sex: 40/F Req #: [id number] Adm Physician: Ordered by: JIAN GUILLEN MD Report #: [id number] Location: ER Room/Bed: Procedure: [id number] CT/CT BRAIN WO Exam Date: 02/03/20 Exam Time: 1999 REPORT STATUS: Signed EXAMINATION: Head CT without contrast. HISTORY:Headache, blurred vision and elevated blood pressure. COMPARISON:CT brain from 01/02/2018. TECHNIQUE: Multidetector axial images were obtained from the foramen magnum to the vertex without contrast. The images were reconstructed using brain and bone algorithms. Thin section brain images were reformatted into coronal and sagittal planes. Dose modulation, iterative reconstruction, and/or weight based adjustment of the mA/kV was utilized to reduce the radiation dose to as low as reasonably achievable. Intravenous contrast: None IMAGE QUALITY: Acceptable. FINDINGS: Skull/scalp: No lytic or blastic. lesions. No surgical changes. Parenchyma: No abnormal density. No acute hemorrhage, mass or acute major vascular territorial infarct. Arteries: No density suggestive of thrombosis. Dural sinuses: No abnormal density suggestive of thrombosis. Ventricles: No hydrocephalus or displacement. Extra- axial spaces: No abnormal density. Brain volume: Normal for age. Craniocervical junction: No mass, Chiari malformation, or basilar invagination. Sella: No mass. Paranasal/mastoid sinuses: Imaged portions unremarkable. IMPRESSION: No intracranial abnormality. Signed by: Dr. Nereida Finney M.D. on 02/03/2020 8:25 PM Dictated By: NEREIDA FINNEY MD 24 Transcribed By: ALIREZA on 02/03/202024 COPY TO: JIAN GUILLEN MD Blood leukocytes automated count (number/volume) 2020-02-03 20:00:00 Test Item White Blood Count (test code = 6690-2) 10.98 10*3/uL 4.8-10.8 [facility] erythrocytes automated count (number/volume)2020-02-03 20:00:00* Test Item Value Reference Range Interpretation Comments Red Blood Count (test code = 789-8) 4.12 10*6/mL 3.6-5.1 [facility] hemoglobin measurement (moles/volume)2020-02-03 20:00:00* Test Item Value Reference Range Interpretation Comments Hemoglobin (test code = 68684-5) 12.8 g/dL 12.0-16.0 [facility]iscoAutomated blood hematocrit (volume fraction)2020-02-03 20:00:00* Test Item Value Reference Range Interpretation Comments Hematocrit (test code = 4544-3) 39.2 % 34.2-44.1 [facility]iscoAutomated erythrocyte mean corpuscular kzrtjn7270-71-60 20:00:00* Test Item Value Reference Range Interpretation Comments Mean Corpuscular Volume (test code = 787-2) 95.1 81-99 [facility]isco[facility] erythrocyte mean corpuscular hemoglobin (mass per erythrocyte)2020-02-03 20:00:00* Test Item Value Reference Range Interpretation Comments Mean Corpuscular Hemoglobin (test code = 785-6) 31.1 pg 28-32 [facility]iscoAutomated erythrocyte mean corpuscular hemoglobin concentration measurement (mass/volume)2020-02-03 20:00:00* Test Item Value Reference Range Interpretation Comments Mean Corpuscular Hemoglobin Concent (test code = 786-4) 32.7 g/dL 31-35 [facility] FriscoRDW DenGv-Quu9672-19-08 20:00:00* Test Item Value Reference Range Interpretation Comments Red Cell Distribution Width (test code = 70888-9) 12.5 % 11.7 -14.4 [facility]iscoAutomated blood platelet count (count/volume)2020-02-03 20:00:00* Test Item Value Reference Range Interpretation Comments Platelet Count (test code = 777-3) 310 10*3/uL 140-360 [facility]iscoAutomated blood segmented neutrophil count as percentage of total jmjovglmdq1881-36-69 20:00:00* Test Item Value Reference Range Interpretation Comments Neutrophils (%) (Auto) (test code = 62596-8) 59.4 % 38.7-80.0 [facility]iscoAutomated blood lymphocyte count as percentage ot total pfyryaxqbu7068-35-25 20:00:00* Test Item Value Reference Range Interpretation Comments Lymphocytes (%) (Auto) (test code = 736-9) 30.6 % 18.0-39.1 [facility]iscoAutomated blood monocyte count as percentage of total nmxwvlgasl8092-95-11 20:00:00* Test Item Value Reference Range Interpretation Comments Monocytes (%) (Auto) (test code = 5905-5) 6.0 % 4.4-11.3 [facility]iscoAutomated blood eosinophil count as percentage of total cpgcsvallw9198-84-04 20:00:00* Test Item Value Reference Range Interpretation Comments Eosinophils (%) (Auto) (test code = 713-8) 3.2 % 0.0-6.0 [facility]iscoAutomated blood basophil count as percentage of total huqgbligcg0896-97-98 20:00:00* Test Item Value Reference Range Interpretation Comments Basophils (%) (Auto) (test code = 706-2) 0.4 % 0.0-1.0 [facility] FriscoFluoroscopic procedure less than one hour eekqgawt7651-02-47 20:00:00* Test Item Value Reference Range Interpretation Comments IM GRANULOCYTES % (test code = IM GRANULOCYTES %) 0.4 % 0.0- 1.0 [facility]iscoAutomated blood neutrophil count 2020-02-03 20:00:00* Test Item Value Reference Range Interpretation Comments Neutrophils # (Auto) (test code = 751-8) 6.5 2.1-6.9 [facility]iscoBlood lymphocytes count (number/volume) 2020-02-03 20:00:00* Test Item Value Reference Range Interpretation Comments Lymphocytes # (Auto) (test code = 19231-4) 3.4 1.0-3.2 [facility]iscoBlood monocytes automated count (number/volume)2020-02-03 20:00:00* Test Item Value Reference Range Interpretation Comments Monocytes # (Auto) (test code = 742-7) 0.7 0.2-0.8 [facility]iscoAutomated blood eosinophil count 2020-02-03 20:00:00* Test Item Value Reference Range Interpretation Comments Eosinophils # (Auto) (test code = 711-2) 0.4 0.0-0.4 [facility]iscoAutomated blood basophil count (count/volume)2020-02-03 20:00:00* Test Item Value Reference Range Interpretation Comments Basophils # (Auto) (test code = 704-7) 0.0 0.0-0.1 [facility] FriscoFluoroscopic procedure less than one hour syyciyrz6878-78-09 20:00:00* Test Item Value Reference Range Interpretation Comments Absolute Immature Granulocyte (auto (dorina t code = Absolute Immature Granulocyte (auto) 0.04 10*3/uL 0-0.1 [facility] plasma sodium measurement (moles/volume)2020-02-03 20:00:00* Test Item Value Reference Range Interpretation Comments Sodium Level (test code = 2951-2) 139 mmol/L 136-145 [facility]villeerum or plasma potassium measurement (moles/volume)2020-02-03 20:00:00* Test Item Value Reference Range Interpretation Comments Potassium Level (test code = 2823-3) 4.1 mmol/L 3.5-5.1 [facility]villeerum or plasma chloride measurement (moles/volume)2020-02-03 20:00:00* Test Item Value Reference Range Interpretation Comments Chloride Level (test code = 2075-0) 104 mmol/L 98-107 [facility]villeerum or plasma carbon dioxide, total measurement (moles/volume)2020-02-03 20:00:00* Test Item Value Reference Range Interpretation Comments Carbon Dioxide Level (test code = 2028-9) 26 mmol/L 22-29 [facility]villeerum or plasma anion gcd8369-46-36 20:00:00* Test Item Value Reference Range Interpretation Comments Anion Gap (test code = 35563-3) 13.1 mmol/L 8-16 [facility]villeerum or plasma urea nitrogen measurement (mass/volume)2020-02-03 20:00:00* Test Item Value Reference Range Interpretation Comments Blood Urea Nitrogen (test code = 3094-0) 14 mg/dL 7-26 [facility]villeerum or plasma creatinine measurement (mass/volume)2020-02-03 20:00:00* Test Item Value Reference Range Interpretation Comments Creatinine (test code = 2160-0) 1.05 mg/dL 0.57-1.11 [facility]villeerum or plasma urea nitrogen/creatinine mass irbhv1531-95-20 20:00:00* Test Item Value Reference Range Interpretation Comments BUN/Creatinine Ratio (test code = 3097-3) 13 6-25 [facility] FriscoEstimated glomerular filtration rate (GFR) ilwczamzgqcwt5328-47-91 20:00:00* Test Item Value Reference Range Interpretation Comments Estimat Glomerular Filtration Rate (test code = 816765810) 58 mL/mi n >60 Ranges were taken from the National Kidney Disease Education Program and the [facility] Kidney Foundation literature.Reference ranges:60 or greater: Uqenjg71-79 ( for 3 consecutive months): Chronic kidney disease 15 or less: Kidney failureBaylor Scott and White Medical Center – FriscoGlucose szhujyglvgh5542-57-01 20:00:00* Test Item Value Reference Range Interpretation Comments Glucose Level (test code = FYZ7238) 115 mg/dL 74-118 [facility]villeerum or plasma calcium measurement (mass/volume)2020-02-03 20:00:00* Test Item Value Reference Range Interpretation Comments Calcium Level (test code = 99324-7) 9.6 mg/dL 8.4-10.2 [facility]villeerum or plasma total bilirubin measurement (mass/volume)2020-02-03 20:00:00* Test Item Value Reference Range Interpretation Comments Total Bilirubin (test code = 1975-2) 0.2 mg/dL 0.2-1.2 [facility] FriscoFluoroscopic procedure less than one hour bikmxycw8480-02-68 20:00:00* Test Item Value Reference Range Interpretation Comments Aspartate Amino Transf (AST/SGOT) (test code = Aspartate Amino Transf (AST/SGOT)) 17 [IU]/L 5-34 [facility]villeerum or plasma alanine aminotransferase measurement (enzymatic activity/volume)2020-02-03 20:00:00* Test Item Value Reference Range Interpretation Comments Alanine Aminotransferase (ALT/SGPT) (test code = 1742-6) 19 [IU]/L 0-55 [facility]villeerum or plasma protein measurement (mass/volume)2020-02-03 20:00:00* Test Item Value Reference Range Interpretation Comments Total Protein (test code = 2885-2) 7.4 g/dL 6.5-8.1 [facility]villeerum or plasma albumin measurement (mass/volume)2020-02-03 20:00:00* Test Item Value Reference Range Interpretation Comments Albumin (test code = 1751-7) 4.1 g/dL 3.5-5.0 [facility] FriscoPlasma globulin measurement (mass/volume) 2020-02-03 20:00:00* Test Item Value Reference Range Interpretation Comments Globulin (test code = 36730-4) 3.3 g/dL 2.3-3.5 [facility]villeerum or plasma albumin/globulin mass sbgxj2278-29-97 20:00:00* Test Item Value Reference Range Interpretation Comments Albumin/Globulin Ratio (test code = 1759-0) 1.2 0.8-2.0 [facility]villeerum or plasma alkaline phosphatase measurement (enzymatic activity/volume)2020-02-03 20:00:00* Test Item Value Reference Range Interpretation Comments Alkaline Phosphatase (test code = 6768-6) 57 [IU]/L 40-150 [facility] FriscoFNA US GUIDED 1ST [id number] 11:31:00 [facility] [address] [place] [address] Patient Name: JANELLE HAYES MR #: [id number] : 1980 Age/Sex: 39/F Req #: [id number] Adm Physician: Ordered by: CORY BENSON DO Report #: [id number] Location: Room/Bed: Procedure: IR/FNA US GUIDED 1ST LESION Exam Date: 11/15/19 Exam Time: 920 REPORT STATUS: Signed Procedure: U ltrasound-guided lymph node fine-needle aspiration COMPARISON: None DI SCUSSION: Billiard Table Mechanic image was obtained prior to the biopsy. There is a 1.3 x 0. 6 x 1 cm lymph node in the right axilla with intact fatty simona. Intact interna l vascularity is noted. Adjacent vessels are noted which were avoided during s ampling. The procedure including the risks and complications of the procedu re were explained to the patient and the patient consented. Under ultraso und guidance, a total of 5 fine needle aspiration biopsy samples were obtained using a 25g needle. The specimens were given to the speech pathology assistant in t he room. The specimen was adequate for diagnosis. Post sampling imaging dem onstrates no acute complication. Patient tolerated the procedure well. IMPRESSION: Successful ultrasound-guided fine needle aspiration biopsy of a right axillary lymph node. There were no immediate complications. Ayla d by: Kylah Melgoza MD on 11/15/2019 11:33 AM Dictated By: KYLAH MELGOZA MD 1133 Transcribed By: Ashlyn HUDSON on 11/15/19 1133 COPY TO: CORY BENSON DO [facility]-[id number] 10:43:00 [place] [address] Patient Name: JANELLE HAYES MR #: [id number] : 1980 Age/Sex: 39/F Req #: [id number] Adm Physician: Ordered by: CORY BENSON DO Report #: [id number] Location: Room/Bed: Procedure: [id number] US/US EXTREMITY PRINCE NON-VAS Exam Date: 11/15/19 Exam Time: 0908 REPORT STATUS: Signed Ultrasound ayesha ateral lower extremity (nonvascular) History: Enlarged lymph nodes. Comparison: None. Discussion: Grayscale and color images of the bilater al groins were obtained to evaluate for lymphadenopathy. Bilateral elonga jason oval-shaped lymph nodes are noted with intact fatty simona. Largest on the r ight measures up to 4.6 cm in length and 0.7 cm in thickness. Largest on the l eft measures up to 5.1 cm in length and 0.6 cm in thickness. IMPRESSION: Bilateral enlarged inguinal lymph nodes are nonspecific. No suspicious featu res are noted. Intact fatty simona are noted. Signed by: Kylah Melgoza MD on 11/15/2019 10:45 AM Dictated By: KYLAH MELGOZA MD 1045 Transcribed By: ALIREZA on 11/15/19 1045 COPY TO: CORY BENSON DO BREAST ULTRASOUND [id number] 15:55:25- BREAST ULTRASOUND LEFTULTRASOUND OF LEFT BREAST: 10/17/2019CLINICAL: Left breast mass. Comparison is made to exam dated 10/17/2019 mammogram - [facility]. Color flow, real-time, and Doppler [...] 10/17/2019 16:34:19copy to: Gerson Bell MD, ph: [phone], fax: [phone] Technologist: Juli Schuler FW, [facility]FWletter sent: BIRADS 1-2 Combo FU Letter Ultrasound BI-RADS: 1 NegativeDIAG MAMM BILATERAL BRANDI CAD [id number] 15:39:17 - DIAG MAMM BILATERAL BRANDI CAD DIGITALBILATERAL [facility] DIGITAL DIAGNOSTIC MAMMOGRAM 3D/2D WITH CAD: 10/17/2019CLINICAL: Left breast mass. Digital breast tomosynthesis was performed in addition to routine CC and MLO views. Current mammographic images were evaluated by either a [employer] M-Vu or a [employer] ImageChecker CAD (computer aided detection system). No [...] 10/17/2019 16:33:13copy to: Gerson Bell MD, ph: [phone], fax: [phone] Technologist: Juli DURAND, [facility]FWMamm[facility] BI-RADS: 0 Incomplete: Additional Imaging Evaluation NeededSodium Uxdae8032-84-05 06:21:00* Test Item Value Reference Range Interpretation Comments Sodium Level (test code = 2951-2) 140 136-145 [facility]iscoPotassium Nputf1529-18-31 06:21:00* Test Item Value Reference Range Interpretation Comments Potassium Level (test code = 2823-3) 4.6 3.5-5.1 [facility]iscoChloride Sublw1790-40-47 06:21:00* Test Item Value Reference Range Interpretation Comments Chloride Level (test code = 2075-0) 108 98-107 H [facility] FriscoCarbon Dioxide Dikjp7658-88-98 06:21:00* Test Item Value Reference Range Interpretation Comments Carbon Dioxide Level (test code = 2028-9) 23 22-29 [facility] FriscoAnion Aun8623-09-67 06:21:00* Test Item Value Reference Range Interpretation Comments Anion Gap (test code = 32846-6) 13.6 8-16 [facility] FriscoBlood Urea Unpyitmk6156-76-61 06:21:00* Test Item Value Reference Range Interpretation Comments Blood Urea Nitrogen (test code = 3094-0) 5 7-26 L [facility] FriscoCreatinine2019-10-19 06:21:00* Test Item Value Reference Range Interpretation Comments Creatinine (test code = 2160-0) 0.91 0.57-1.11 [facility] FriscoBUN/Creatinine Rfpcl5666-34-93 06:21:00* Test Item Value Reference Range Interpretation Comments BUN/Creatinine Ratio (test code = 3097-3) 5 6-25 L [facility] FriscoEstimat Glomerular Filtration Rate 2019-01-13 06:21:00* Test Item Value Reference Range Interpretation Comments Estimat Glomerular Filtration Rate (test code = 821553242) > 60 >60 Ranges were taken from the National Kidney Disease Education Program and the [facility] Foundation literature.Reference ranges:60 or greater: Rqqunz25-28 ( for 3 consecutive months): Chronic kidney disease 15 or less: Kidney failureBaylor Scott and White Medical Center – FriscoGlucose Hqoer7334-48-89 06:21:00* Test Item Value Reference Range Interpretation Comments Glucose Level (test code = ACF7495) 140 74-118 H [facility] FriscoCalcium Ndtiq0268-76-31 06:21:00* Test Item Value Reference Range Interpretation Comments Calcium Level (test code = 77820-1) 9.3 8.4-10.2 [facility] FriscoTotal Cdnroldtw1022-87-77 06:21:00* Test Item Value Reference Range Interpretation Comments Total Bilirubin (test code = 1975-2) 0.4 0.2-1.2 [facility] FriscoAspartate Amino Transf (AST/SGOT) 2019-01-13 06:21:00* Test Item Value Reference Range Interpretation Comments Aspartate Amino Transf (AST/SGOT) (test code = Aspartate Amino Transf (AST/SGOT)) 91 5-34 H [facility] FriscoAlanine Aminotransferase (ALT/SGPT) 2019-01-13 06:21:00* Test Item Value Reference Range Interpretation Comments Alanine Aminotransferase (ALT/SGPT) (test code = 1742-6) 91 0-55 H [facility] FriscoTotal Opsxjct5177-53-51 06:21:00* Test Item Value Reference Range Interpretation Comments Total Protein (test code = 2885-2) 6.8 6.5-8.1 [facility] FriscoAlbumin2019-10-19 06:21:00* Test Item Value Reference Range Interpretation Comments Albumin (test code = 1751-7) 3.5 3.5-5.0 [facility] FriscoGlobulin2019-10-19 06:21:00* Test Item Value Reference Range Interpretation Comments Globulin (test code = 19805-2) 3.3 2.3-3.5 [facility] FriscoAlbumin/Globulin Qttkd8648-35-47 06:21:00 * Test Item Value Reference Range Interpretation Comments Albumin/Globulin Ratio (test code = 1759-0) 1.1 0.8-2.0 [facility] FriscoAlkaline Eaqybpsiqdi2688-86-20 06:21:00* Test Item Value Reference Range Interpretation Comments Alkaline Phosphatase (test code = 6768-6) 59 40-150 [facility] FriscoWhite Blood Lwwzb0248-58-17 06:00:00* Test Item Value Reference Range Interpretation Comments White Blood Count (test code = 6690-2) 13.87 4.8-10.8 H [facility] FriscoRed Blood Efgcv1377-74-68 06:00:00* Test Item Value Reference Range Interpretation Comments Red Blood Count (test code = 789-8) 4.15 3.6-5.1 [facility] FriscoHemoglobin2019-10-19 06:00:00* Test Item Value Reference Range Interpretation Comments Hemoglobin (test code = 73369-3) 12.9 12.0-16.0 [facility]iscoHematocrit2019-10-19 06:00:00* Test Item Value Reference Range Interpretation Comments Hematocrit (test code = 4544-3) 40.2 34.2-44.1 [facility] FriscoMean Corpuscular Ohingh5433-28-71 06:00:00* Test Item Value Reference Range Interpretation Comments Mean Corpuscular Volume (test code = 787-2) 96.9 81-99 [facility]iscoMean Corpuscular Fsivssnisy0552-60-13 06:00:00* Test Item Value Reference Range Interpretation Comments Mean Corpuscular Hemoglobin (test code = 785-6) 31.1 28-32 [facility] FriscoMean Corpuscular Hemoglobin Concent 2019-01-13 06:00:00* Test Item Value Reference Range Interpretation Comments Mean Corpuscular Hemoglobin Concent (test code = 786-4) 32.1 31-35 [facility] FriscoRed Cell Distribution Gkzgr2041-66-00 06:00:00* Test Item Value Reference Range Interpretation Comments Red Cell Distribution Width (test code = 78757-7) 13.1 11.7 -14.4 [facility] FriscoPlatelet Tstep8163-03-09 06:00:00* Test Item Value Reference Range Interpretation Comments Platelet Count (test code = 777-3) 286 140-360 [facility] FriscoNeutrophils (%) (Auto)2019-01-13 06:00:00 * Test Item Value Reference Range Interpretation Comments Neutrophils (%) (Auto) (test code = 80786-3) 82.9 38.7-80.0 H [facility] FriscoLymphocytes (%) (Auto)2019-01-13 06:00:00 * Test Item Value Reference Range Interpretation Comments Lymphocytes (%) (Auto) (test code = 736-9) 11.9 18.0-39.1 L [facility] FriscoMonocytes (%) (Auto)2019-01-13 06:00:00* Test Item Value Reference Range Interpretation Comments Monocytes (%) (Auto) (test code = 5905-5) 4.7 4.4-11.3 [facility]iscoEosinophils (%) (Auto)2019-01-13 06:00:00 * Test Item Value Reference Range Interpretation Comments Eosinophils (%) (Auto) (test code = 713-8) 0.0 0.0-6.0 [facility]iscoBasophils (%) (Auto)2019-01-13 06:00:00* Test Item Value Reference Range Interpretation Comments Basophils (%) (Auto) (test code = 706-2) 0.1 0.0-1.0 [facility] FriscoIM GRANULOCYTES %2019-01-13 06:00:00* Test Item Value Reference Range Interpretation Comments IM GRANULOCYTES % (test code = IM GRANULOCYTES %) 0.4 0.0- 1.0 [facility] FriscoNeutrophils # (Auto)2019-01-13 06:00:00* Test Item Value Reference Range Interpretation Comments Neutrophils # (Auto) (test code = 751-8) 11.5 2.1-6.9 H [facility] FriscoLymphocytes # (Auto)2019-01-13 06:00:00* Test Item Value Reference Range Interpretation Comments Lymphocytes # (Auto) (test code = 50491-3) 1.7 1.0-3.2 [facility] FriscoMonocytes # (Auto)2019-01-13 06:00:00* Test Item Value Reference Range Interpretation Comments Monocytes # (Auto) (test code = 742-7) 0.7 0.2-0.8 [facility]iscoEosinophils # (Auto)2019-01-13 06:00:00* Test Item Value Reference Range Interpretation Comments Eosinophils # (Auto) (test code = 711-2) 0.0 0.0-0.4 [facility] FriscoBasophils # (Auto)2019-01-13 06:00:00* Test Item Value Reference Range Interpretation Comments Basophils # (Auto) (test code = 704-7) 0.0 0.0-0.1 [facility] FriscoAbsolute Immature Granulocyte (auto 2019-01-13 06:00:00* Test Item Value Reference Range Interpretation Comments Absolute Immature Granulocyte (auto (dorina t code = Absolute Immature Granulocyte (auto) 0.05 0-0.1 [facility] FriscoLipase2019-10-18 05:27:00* Test Item Value Reference Range Interpretation Comments Lipase (test code = 3040-3) 5 8-78 L [facility] FriscoB-Type Natriuretic Dpantxu0953-13-72 18:54:00* Test Item Value Reference Range Interpretation Comments B-Type Natriuretic Peptide (test code = 80489-4) 37.9 0-100 [facility] FriscoUrine OGP7008-12-97 18:51:00* Test Item Value Reference Range Interpretation Comments Urine WBC (test code = 5821-4) NONE 0-5 [facility] FriscoUrine CUQ1739-15-72 18:51:00* Test Item Value Reference Range Interpretation Comments Urine RBC (test code = 02700-8) NONE 0-5 [facility] FriscoUrine Feamutbf3241-67-77 18:51:00* Test Item Value Reference Range Interpretation Comments Urine Bacteria (test code = 50770-4) FEW NONE [facility] FriscoUrine Epithelial Xiaes2656-67-00 18:51:00 * Test Item Value Reference Range Interpretation Comments Urine Epithelial Cells (test code = 32249-3) MODERATE NONE [facility] FriscoUrine Amorphous Xhnqmxwo3680-53-51 18:51:00* Test Item Value Reference Range Interpretation Comments Urine Amorphous Sediment (test code = 8246-1) MODERATE FEW H [facility] FriscoCreatine Kinase YJ0868-81-15 18:51:00* Test Item Value Reference Range Interpretation Comments Creatine Kinase MB (test code = 88890-7) 0.60 0-5.0 [facility] FriscoTroponin P0278-43-75 18:51:00* Test Item Value Reference Range Interpretation Comments Troponin I (test code = TII6475) < 0.001 0-0.300 [facility] FriscoCHEST SINGLE (PORTABLE)2019-01-11 18:45:00 [facility] [address] [address] Patient Name: JANELLE HAYES MR #: [id number] : 1980 Age/Sex: 39/F Req #: [id number] Adm Physician: Ordered by: KAN CORTEZ MD, MD Report #: [id number] Location: ER Room/Bed: Procedure: [id number] D X/CHEST SINGLE (PORTABLE) Exam Date: Exam [...] pneumothorax. BONES AND SOFT TISSUES: No focal osseou s lesion. The soft tissues are normal. IMPRESSION: No acute cardiopulmon ian disease. Signed by: Dr. Halley Jernigan MD on 01/11/2019 6:47 PM Dictated By: HALLEY JERNIGAN MD 46 Transcribed By: ALIREZA on 01/11/191846 COPY TO: KAN CORTEZ Urine Ytgz7815-58-37 18:39:00* Test Item Value Reference Range Interpretation Comments Urine Test (test code = 2106-3) NEGATIVE NEGATIVE [facility] FriscoUrine Nhymg0727-85-52 18:38:00* Test Item Value Reference Range Interpretation Comments Urine Color (test code = 5778-6) YELLOW YELLOW [facility] FriscoUrine Fhlglke6583-62-86 18:38:00* Test Item Value Reference Range Interpretation Comments Urine Clarity (test code = 38989-1) SL CLOUDY CLEAR [facility] FriscoUrine Specific Bbluikj4865-09-49 18:38:00 * Test Item Value Reference Range Interpretation Comments Urine Specific [place] (test code = 5811-5) 1.015 1.010-1.02 5 [facility] FriscoUrine mM8344-61-46 18:38:00* Test Item Value Reference Range Interpretation Comments Urine pH (test code = 35371-8) 8.5 5-7 [facility] FriscoUrine Leukocyte Cztyabrs1413-41-66 18:38:00* Test Item Value Reference Range Interpretation Comments Urine Leukocyte Esterase (test code = 91029-2) NEGATIVE NEGATIV E [facility] FriscoUrine Cjadkdp7915-61-64 18:38:00* Test Item Value Reference Range Interpretation Comments Urine Nitrite (test code = 20045-3) NEGATIVE NEGATIVE [facility] FriscoUrine Lqebews3873-45-19 18:38:00* Test Item Value Reference Range Interpretation Comments Urine Protein (test code = 87822-7) NEGATIVE NEGATIVE [facility] FriscoUrine Glucose (UA)2019-01-11 18:38:00* Test Item Value Reference Range Interpretation Comments Urine Glucose (UA) (test code = 35037-7) NEGATIVE NEGATIVE [facility] FriscoUrine Crrgrqp2079-86-68 18:38:00* Test Item Value Reference Range Interpretation Comments Urine Ketones (test code = 75847-0) NEGATIVE NEGATIVE [facility] Ldzskasdjzwj5449-17-28 18:38:00* Test Item Value Reference Range Interpretation Comments Urine Urobilinogen (test code = 99044-7) 0.2 0.2-1 [facility] FriscoUrine Jlsbdxjgq6748-21-10 18:38:00* Test Item Value Reference Range Interpretation Comments Urine Bilirubin (test code = 1977-8) NEGATIVE NEGATIVE [facility] FriscoUrine Sfkxh2788-60-27 18:38:00* Test Item Value Reference Range Interpretation Comments Urine Blood (test code = 24137-4) NEGATIVE NEGATIVE [facility] FriscoCreatine Wozpec9774-92-20 18:38:00* Test Item Value Reference Range Interpretation Comments Creatine Kinase (test code = 2157-6) 99 29-168 [facility] FriscoProthrombin Mfdm2124-41-42 18:32:00* Test Item Value Reference Range Interpretation Comments Prothrombin Time (test code = 5902-2) 14.0 11.9-14.5 [facility] FriscoProthromb Time International Ratio 2019-01-11 18:32:00* Test Item Value Reference Range Interpretation Comments Prothromb Time International Ratio (test code = 6301-6) 1.03 Oral Anticoagulant Therapy INR Values:1. Low Intensity Therapy 1.5 - 2.02 . Moderate Intensity Therapy 2.0 - 3.03. High Intensity Therapy(1) 2.5 - 3. 54. High Intensity Therapy(2) 3.0 - 4.05. Panic Value INR > 5.0 [facility] FriscoActivated Partial Thromboplast Time 2019-01-11 18:32:00* Test Item Value Reference Range Interpretation Comments Activated Partial Thromboplast Time (test code = 38713-0) 28.6 23.8-35.5 [facility] FriscoUS NEGQNFUGHST9576-56-36 17:31:00 [facility] [address] [place] [address] Patient Name: JANELLE HAYES MR #: [id number] : 1980 Age/Sex: 39/F Req #: [id number] Adm Physician: Ordered by: DANA NIELSEN, KAN NIELSEN Report #: [id number] Location: ER Room/Bed: Procedure: [id number] U S/US GALLBLADDER Exam Date: 01/11/19 Exam [...] is no free fluid. IMPRESSION: Cholelithiasis. No sonograph ic evidence of acute cholecystitis. Normal biliary tree. Mild steatosis. Signed by: Dr. Halley Jernigan MD on 01/11/2019 5:34 PM Dictated By: HALLEY JERNIGAN MD 33 COPY TO: Ashlyn CORTEZ Carbon Dioxide Cezhm9698-75-68 03:15:00* Test Item Value Reference Range Interpretation Comments Carbon Dioxide Level (test code = 2028-9) 28 22-32 [facility] FriscoAnion Xub6247-61-95 03:15:00* Test Item Value Reference Range Interpretation Comments Anion Gap (test code = 23071-1) 13.8 8-16 [facility] FriscoCT BRAIN VD1727-11-49 01:22:00 [facility] [address] [place] [address] Patient Name: JANELLE HAYES MR #: [id number] : Age/Sex: 37/F Req #: [id number] Adm Physician: Ordered by: TORRES PAREKH MD Report #: [id number] Location: ER Room/Bed: Procedure: [id number] CT/CT BRAIN WO Exam Date: 01/02 Exam [...] 01/03 COPY TO: TORRES PAREKH MD Sodium Qmgqu2376-86-67 00:58:00* Test Item Value Reference Range Interpretation Comments Sodium Level (test code = 2951-2) 144 136-145 [facility] FriscoPotassium Scdko7671-94-08 00:58:00* Test Item Value Reference Range Interpretation Comments Potassium Level (test code = 2823-3) 3.8 3.5-5.1 [facility] FriscoChloride Ciuzk0442-26-80 00:58:00* Test Item Value Reference Range Interpretation Comments Chloride Level (test code = 2075-0) 106 98-107 [facility] FriscoBlood Urea Muetvjdo7867-63-47 00:58:00* Test Item Value Reference Range Interpretation Comments Blood Urea Nitrogen (test code = 3094-0) 9 - [facility] FriscoCreatinine2018-10-09 00:58:00* Test Item Value Reference Range Interpretation Comments Creatinine (test code = 2160-0) 1.02 0.57-1.11 [facility] FriscoBUN/Creatinine Njsck6699-35-77 00:58:00* Test Item Value Reference Range Interpretation Comments BUN/Creatinine Ratio (test code = 3097-3) 9 09-19 [facility] FriscoEstimat Glomerular Filtration Rate 2018-01-03 00:58:00* Test Item Value Reference Range Interpretation Comments Estimat Glomerular Filtration Rate (test code = 793255498) 60- >60 Ranges were taken from the National Kidney Disease Education Program and the [facility] [employer] literature.Reference ranges:60 or greater: Krdwqz40-78 ( for 3 consecutive months): Chronic kidney disease 15 or less: Kidney failureBaylor Scott and White Medical Center – FriscoGlucose Rmtca7364-17-87 00:58:00* Test Item Value Reference Range Interpretation Comments Glucose Level (test code = XKV9497) 124 74-118 H [facility] FriscoCalcium Fjgpp5768-55-23 00:58:00* Test Item Value Reference Range Interpretation Comments Calcium Level (test code = 85997-2) Results called to [] at 0057 on 01/03/18 by Silvia Nava. RB OK. 8.4-10.2 [facility] FriscoMagnesium Dlhty4285-05-27 00:58:00* Test Item Value Reference Range Interpretation Comments Magnesium Level (test code = 18429-7) 1.9 1.3-2.1 [facility] FriscoTotal Gijobvlwq1437-94-20 00:58:00* Test Item Value Reference Range Interpretation Comments Total Bilirubin (test code = 1975-2) 0.3 0.2-1.2 [facility] FriscoAspartate Amino Transf (AST/SGOT) 2018-01-03 00:58:00* Test Item Value Reference Range Interpretation Comments Aspartate Amino Transf (AST/SGOT) (test code = Aspartate Amino Transf (AST/SGOT)) 21 5-34 [facility] FriscoAlanine Aminotransferase (ALT/SGPT) 2018-01-03 00:58:00* Test Item Value Reference Range Interpretation Comments Alanine Aminotransferase (ALT/SGPT) (test code = 1742-6) 19 0-55 [facility] FriscoTotal Lozqhwb8082-84-38 00:58:00* Test Item Value Reference Range Interpretation Comments Total Protein (test code = 2885-2) 8.2 6.5-8.1 H [facility] FriscoAlbumin2018-10-09 00:58:00* Test Item Value Reference Range Interpretation Comments Albumin (test code = 1751-7) 4.2 3.5-5.0 [facility] FriscoGlobulin2018-10-09 00:58:00* Test Item Value Reference Range Interpretation Comments Globulin (test code = 46056-2) 4.0 2.3-3.5 H [facility] FriscoAlbumin/Globulin Ibjzb4976-51-62 00:58:00 * Test Item Value Reference Range Interpretation Comments Albumin/Globulin Ratio (test code = 1759-0) 1.1 0.8-2.0 [facility] FriscoAlkaline Yblqbypopnu3498-03-99 00:58:00* Test Item Value Reference Range Interpretation Comments Alkaline Phosphatase (test code = 6768-6) 63 40-150 [facility] FriscoCreatine Uxzlbt0060-60-63 00:58:00* Test Item Value Reference Range Interpretation Comments Creatine Kinase (test code = 2157-6) 182 29-168 H [facility] FriscoCreatine Kinase DU2080-03-93 00:58:00* Test Item Value Reference Range Interpretation Comments Creatine Kinase MB (test code = 76395-1) 0.80 0-5.0 [facility] FriscoTroponin Y3650-90-27 00:58:00* Test Item Value Reference Range Interpretation Comments Troponin I (test code = FIY3959) -0.001 0-0.300 [facility] FriscoUrine Osnfz2712-36-86 00:48:00* Test Item Value Reference Range Interpretation Comments Urine Color (test code = 5778-6) YELLOW YELLOW [facility] FriscoUrine Tbmkndb5609-30-69 00:48:00* Test Item Value Reference Range Interpretation Comments Urine Clarity (test code = 44066-4) CLOUDY CLEAR H [facility] FriscoUrine Specific Pfdurod0442-63-86 00:48:00 * Test Item Value Reference Range Interpretation Comments Urine Specific [place] (test code = 5811-5) 1.015 1.010-1.02 5 [facility] FriscoUrine lE9051-47-16 00:48:00* Test Item Value Reference Range Interpretation Comments Urine pH (test code = 61249-9) 8 5-7 H [facility] Leukocyte Twndfmtm0307-49-40 00:48:00* Test Item Value Reference Range Interpretation Comments Urine Leukocyte Esterase (test code = 5799-2) NEGATIVE NEGATIVE [facility] Kngsghg8514-53-10 00:48:00* Test Item Value Reference Range Interpretation Comments Urine Nitrite (test code = 19182-8) NEGATIVE NEGATIVE [facility] FriscoUrine Kjfleeb4144-63-41 00:48:00* Test Item Value Reference Range Interpretation Comments Urine Protein (test code = 5804-0) TRACE NEGATIVE H [facility] FriscoUrine Glucose (UA)2018-01-03 00:48:00* Test Item Value Reference Range Interpretation Comments Urine Glucose (UA) (test code = 2349-9) NEGATIVE NEGATIVE [facility] FriscoUrine Yypjfjx3035-51-17 00:48:00* Test Item Value Reference Range Interpretation Comments Urine Ketones (test code = 71608-6) NEGATIVE NEGATIVE [facility] FriscoUrine Buoftzqixsfi9095-23-18 00:48:00* Test Item Value Reference Range Interpretation Comments Urine Urobilinogen (test code = 79863-0) 0.2 0.2-1 [facility] FriscoUrine Mmkgopsyj4473-62-78 00:48:00* Test Item Value Reference Range Interpretation Comments Urine Bilirubin (test code = 1978-6) NEGATIVE NEGATIVE [facility] FriscoUrine Jkals8443-19-36 00:48:00* Test Item Value Reference Range Interpretation Comments Urine Blood (test code = 79868-9) NEGATIVE NEGATIVE [facility] FriscoUrine CQY2814-48-76 00:48:00* Test Item Value Reference Range Interpretation Comments Urine WBC (test code = 5821-4) 6-10 0-5 H [facility] FriscoUrine RIC0404-84-49 00:48:00* Test Item Value Reference Range Interpretation Comments Urine RBC (test code = 41720-1) 6-10 0-5 H [facility] FriscoUrine Ddxhfldj8423-95-40 00:48:00* Test Item Value Reference Range Interpretation Comments Urine Bacteria (test code = 22963-1) MODERATE NONE H [facility] FriscoUrine Epithelial Rnrbw6050-65-97 00:48:00 * Test Item Value Reference Range Interpretation Comments Urine Epithelial Cells (test code = 72217-9) FEW NONE [facility] FriscoUrine Amorphous Wevptlwn8519-27-15 00:48:00* Test Item Value Reference Range Interpretation Comments Urine Amorphous Sediment (test code = 8246-1) MANY FEW H [facility] FriscoUrine Ninx4125-80-73 00:48:00* Test Item Value Reference Range Interpretation Comments Urine Test (test code = 2106-3) NEGATIVE NEGATIVE [facility] FriscoWhite Blood Luxwv7042-69-70 00:31:00* Test Item Value Reference Range Interpretation Comments White Blood Count (test code = 6690-2) 11.51 4.8-10.8 H [facility] FriscoRed Blood Cwtmp4593-41-80 00:31:00* Test Item Value Reference Range Interpretation Comments Red Blood Count (test code = 789-8) 4.37 3.6-5.1 [facility] FriscoHemoglobin2018-10-09 00:31:00* Test Item Value Reference Range Interpretation Comments Hemoglobin (test code = 83111-1) 13.7 12.0-16.0 [facility] FriscoHematocrit2018-10-09 00:31:00* Test Item Value Reference Range Interpretation Comments Hematocrit (test code = 4544-3) 41.0 34.2-44.1 [facility] FriscoMean Corpuscular Ipcqkf2282-26-19 00:31:00* Test Item Value Reference Range Interpretation Comments Mean Corpuscular Volume (test code = 787-2) 93.8 81-99 [facility] FriscoMean Corpuscular Xjlbbfxfqc7584-32-91 00:31:00* Test Item Value Reference Range Interpretation Comments Mean Corpuscular Hemoglobin (test code = 785-6) 31.4 28-32 [facility] Corpuscular Hemoglobin Concent 2018-01-03 00:31:00* Test Item Value Reference Range Interpretation Comments Mean Corpuscular Hemoglobin Concent (test code = 786-4) 33.4 31-35 [facility] FriscoRed Cell Distribution Vwrbq7356-01-55 00:31:00* Test Item Value Reference Range Interpretation Comments Red Cell Distribution Width (test code = 77715-5) 13.3 11.7 -14.4 [facility] FriscoPlatelet Byupz2826-09-69 00:31:00* Test Item Value Reference Range Interpretation Comments Platelet Count (test code = 777-3) 250 140-360 [facility] FriscoNeutrophils (%) (Auto)2018-01-03 00:31:00 * Test Item Value Reference Range Interpretation Comments Neutrophils (%) (Auto) (test code = 11106-8) 61.9 38.7-80.0 [facility] FriscoLymphocytes (%) (Auto)2018-01-03 00:31:00 * Test Item Value Reference Range Interpretation Comments Lymphocytes (%) (Auto) (test code = 736-9) 29.5 18.0-39.1 [facility] FriscoMonocytes (%) (Auto)2018-01-03 00:31:00* Test Item Value Reference Range Interpretation Comments Monocytes (%) (Auto) (test code = 5905-5) 4.8 4.4-11.3 [facility] FriscoEosinophils (%) (Auto)2018-01-03 00:31:00 * Test Item Value Reference Range Interpretation Comments Eosinophils (%) (Auto) (test code = 713-8) 3.1 0.0-6.0 [facility] FriscoBasophils (%) (Auto)2018-01-03 00:31:00* Test Item Value Reference Range Interpretation Comments Basophils (%) (Auto) (test code = 706-2) 0.4 0.0-1.0 [facility] FriscoIM GRANULOCYTES %2018-01-03 00:31:00* Test Item Value Reference Range Interpretation Comments IM GRANULOCYTES % (test code = IM GRANULOCYTES %) 0.3 0.0- 1.0 [facility] FriscoNeutrophils # (Auto)2018-01-03 00:31:00* Test Item Value Reference Range Interpretation Comments Neutrophils # (Auto) (test code = 751-8) 7.1 2.1-6.9 H [facility] FriscoLymphocytes # (Auto)2018-01-03 00:31:00* Test Item Value Reference Range Interpretation Comments Lymphocytes # (Auto) (test code = 45591-1) 3.4 1.0-3.2 H [facility] FriscoMonocytes # (Auto)2018-01-03 00:31:00* Test Item Value Reference Range Interpretation Comments Monocytes # (Auto) (test code = 742-7) 0.6 0.2-0.8 [facility] FriscoEosinophils # (Auto)2018-01-03 00:31:00* Test Item Value Reference Range Interpretation Comments Eosinophils # (Auto) (test code = 711-2) 0.4 0.0-0.4 [facility] FriscoBasophils # (Auto)2018-01-03 00:31:00* Test Item Value Reference Range Interpretation Comments Basophils # (Auto) (test code = 704-7) 0.1 0.0-0.1 [facility] FriscoAbsolute Immature Granulocyte (auto 2018-01-03 00:31:00* Test Item Value Reference Range Interpretation Comments Absolute Immature Granulocyte (auto (dorina t code = Absolute Immature Granulocyte (auto) 0.03 0-0.1 [facility]CH[facility]2018-01-03 00:29:00 [facility] [address] [place], [place] [address] Patient Name: JANELLE HAYES MR #: [id number] : 1980 Age/Sex: 37/F Req #: [id number] Adm Physician: Ordered by: TORRES PAREKH MD Report #: [id number] Location: ER Room/Bed: Procedure: [id number] DX/CHEST SINGLE (PORTABLE) Exam Date: 01/02/18 Exam [...]
[2020-02-10 06:22] LABS: BILIRUBIN,URINE NEGATIVE (NEGATIVE); CLARITY,URINE CLEAR (CLEAR); COLOR,URINE YELLOW (YELLOW); KETONES,URINE NEGATIVE (NEGATIVE); LEUKOCYTE ESTERASE ,URINE NEGATIVE (NEGATIVE); NITRITE,URINE NEGATIVE (NEGATIVE); PROTEIN,URINE DIPSTICK NEGATIVE (NEGATIVE); URINE UROBILINOGEN 0.2 mg/dL (0.2 - 1)
[2020-02-10 06:23] LABS: PREGNANCY TEST, URINE NEGATIVE (NEGATIVE)
[2020-02-10 06:26] LABS: BASOPHILS # (AUTO) 0.1 (0.0-0.1); BASOPHILS % 0.7 % (0.0-1.0); EOSINOPHILS # (AUTO) 0.5 (0.0-0.4); EOSINOPHILS % 4.1 % (0.0-6.0); HEMATOCRIT 42.1 % (34.2-44.1); HEMOGLOBIN 13.7 g/dL (12.0-16.0); LYMPHOCYTES # (AUTO) 4.8 (1.0-3.2); MEAN CORPUSCULAR HEMOGLOBIN 31.4 pg (28-32); MEAN CORPUSCULAR HGB CONC 32.5 g/dL (31-35); MEAN CORPUSCULAR VOLUME 96.6 fL (81-99); MONOCYTES # (AUTO) 0.8 (0.2-0.8); MONOCYTES % 6.3 % (4.4-11.3); NEUTROPHILS # (AUTO) 5.9 (2.1-6.9); NEUTROPHILS % 48.7 % (38.7-80.0); PLATELET COUNT 298 x10e3/uL (140-360); RED BLOOD COUNT 4.36 x10e6/uL (3.6-5.1); RED CELL DISTRIBUTION WIDTH 12.6 % (11.7-14.4)
[2020-02-10 06:38] LABS: BACTERIA,URINE FEW /HPF; EPITHELIAL CELLS,URINE FEW /LPF; MUCUS,URINE FEW (RARE); RBC,URINE 0-5 /HPF (0-5); WBC,URINE (MAN) 0-5 /HPF (0-5)
[2020-02-10 06:43] LABS: ALANINE AMINOTRANSFERASE 15 IU/L (0-55); ALBUMIN/GLOBULIN RATIO 1.2 (0.8-2.0); ALKALINE PHOSPHATASE 65 IU/L (40-150); ANION GAP 15.1 mmol/L (8-16); BLOOD UREA NITROGEN 15 mg/dL (7-26); BUN/CREATININE RATIO 16 (6-25); CALCIUM 8.9 mg/dL (8.4-10.2); CARBON DIOXIDE 22 mmol/L (22-29); CHLORIDE 107 mmol/L (98-107); CREATININE, SERUM 0.93 mg/dL (0.57-1.11); EST GLOMERULAR FILTRATION RATE > 60 ML/MIN (60-); GLUCOSE 94 mg/dL (74-118); POTASSIUM 4.1 mmol/L (3.5-5.1); SODIUM 140 mmol/L (136-145)
--- NOTE | 2020-02-10 06:51 | NUR ---
report given to janie plasencia
--- NOTE | 2020-02-10 07:03 | Emergency Department Note ---
History of Present Illnes History of Present Illness Chief Complaint: Back Pain History of Present Illness This is a 40 year old female reports lumbar back pain "shooting to my abdomen" and urinary urgency x1 week; also states, "I woke up this morning covered in urine and my back hurt more; pt rx'd Macrobid on 02/07/[address] [facility]; V/S/S; NAD noted; resp rate and effort are wnl, O2 sat RA 100% [employer] Required: No Onset (how long ago): week(s) (1) Location: bilateral flank Quality: pain Radiation: Reports abdomen (around flank to abdomen) Severity: severe Onset quality: sudden Timing of current episode: intermittent Progression: waxing and waning Chronicity: new Context: Denies recent illness Relieving factors: none Exacerbating factors: none Associated symptoms: Reports denies other symptoms Treatments prior to arrival: none Past Medical/Family History Physician Review I have reviewed the patient's past medical and family history. Any updates have been documented here. Past Medical History Recent Fever: No Clinical Suspicion of Infectio: No New/Unexplained Change in Ment: No Past Medical History: Hypertension, Migraines Other Medical History: HX OF GALLSTONES, cholecystectomy MORBID OBESITY VERTIGO Past Surgical History: Cholecysctectomy, Tubal Ligation, Lumpectomy Other Surgery: LUMPECTOMY TO LT BREAST: DNC X 2 Social History Smoking Cessation: Never Smoker Counseling Performed: No Alcohol Use: None Any Illegal Drug Use: No TB Exposure/Symptoms: No Physically hurt or threatened: No Family History Family history of heart diseas: No Other Last Tetanus: UNKNOWN Any Pre-Existing Lines (PICC,: No Review of Systems Review of Systems Constitutional: Reports no symptoms EENTM: Reports no symptoms Cardiovascular: Reports no symptoms Respiratory: Reports no symptoms Gastrointestinal: Reports no symptoms Genitourinary: Reports as per HPI Musculoskeletal: Reports no symptoms Integumentary: Reports no symptoms Neurological: Reports no symptoms Psychological: Reports no symptoms Endocrine: Reports no symptoms Hematological/Lymphatic: Reports no symptoms Physical Exam Related Data Allergies: Coded Allergies: Sulfa (Sulfonamide Antibiotics) (Verified Allergy, Unknown, 01/02/18) adhesive tape (Verified Allergy, Unknown, 01/02/18) clindamycin (Verified Allergy, Unknown, 01/02/18) Triage Vital Signs Vital Signs Date Time Temp Pulse Resp B/P (MAP) Pulse Ox O2 Delivery O2 Flow Rate FiO2 02/10/20 06:01 98.5 95 18 125/92 100 Room Air Vital signs reviewed: Yes Physical Exam CONSTITUTIONAL Constitutional: Present well-developed, Present well-nourished HENT HENT: Present normocephalic, Present atraumatic, Present oropharynx clear/moist, Present nose normal HENT L/R: Present left ext ear normal, Present right ext ear normal EYES Eyes: Reports PERRL, Reports conjunctivae normal NECK Neck: Present ROM normal PULMONARY Pulmonary: Present effort normal, Present breath sounds normal CARDIOVASCULAR Cardiovascular: Present regular rhythm, Present heart sounds normal, Present capillary refill normal, Present normal rate GASTROINTESTINAL Abdominal: Present soft, Present nontender, Present bowel sounds normal, Present left CVA tenderness (mild), Present right CVA tenderness (mild) GENITOURINARY Genitourinary: Present exam deferred SKIN Skin: Present warm, Present dry MUSCULOSKELETAL Musculoskeletal: Present ROM normal NEUROLOGICAL Neurological: Present alert, Present oriented x 3, Present no gross motor or sensory deficits PSYCHOLOGICAL Psychological: Present mood/affect normal, Present judgement normal Results Laboratory Result Diagram: 02/10/20 0608 02/10/20 0608 Laboratory Laboratory Tests Test 02/10/20 06:10 02/10/20 06:08 Urine Color Yellow (YELLOW) Urine Clarity Clear (CLEAR) Urine pH 6 (5 - 7) Urine Specific [place] >=1.030 (1.010-1.025) Urine Protein Negative (NEGATIVE) Urine Glucose (UA) Negative (NEGATIVE) Urine Ketones Negative (NEGATIVE) Urine Blood Negative (NEGATIVE) Urine Nitrite Negative (NEGATIVE) Urine Bilirubin Negative (NEGATIVE) Urine Urobilinogen 0.2 mg/dL (0.2 - 1) Urine Leukocyte Esterase Negative (NEGATIVE) Urine RBC 0-5 /HPF (0-5) Urine WBC 0-5 /HPF (0-5) Urine Epithelial Cells Few /LPF (NONE) Urine Bacteria Few /HPF (NONE) Urine Mucus Few (RARE) Urine Test Negative (NEGATIVE) White Blood Count 12.11 x10e3/uL (4.8-10.8) Red Blood Count 4.36 x10e6/uL (3.6-5.1) Hemoglobin 13.7 g/dL (12.0-16.0) Hematocrit 42.1 % (34.2-44.1) Mean Corpuscular Volume 96.6 fL (81-99) Mean Corpuscular Hemoglobin 31.4 pg (28-32) Mean Corpuscular Hemoglobin Concent 32.5 g/dL (31-35) Red Cell Distribution Width 12.6 % (11.7-14.4) Platelet Count 298 x10e3/uL (140-360) Neutrophils (%) (Auto) 48.7 % (38.7-80.0) Lymphocytes (%) (Auto) 40.0 % (18.0-39.1) Monocytes (%) (Auto) 6.3 % (4.4-11.3) Eosinophils (%) (Auto) 4.1 % (0.0-6.0) Basophils (%) (Auto) 0.7 % (0.0-1.0) Neutrophils # (Auto) 5.9 (2.1-6.9) Lymphocytes # (Auto) 4.8 (1.0-3.2) Monocytes # (Auto) 0.8 (0.2-0.8) Eosinophils # (Auto) 0.5 (0.0-0.4) Basophils # (Auto) 0.1 (0.0-0.1) Absolute Immature Granulocyte (auto 0.03 x10e3/uL (0-0.1) Sodium Level 140 mmol/L (136-145) Potassium Level 4.1 mmol/L (3.5-5.1) Chloride Level 107 mmol/L (98-107) Carbon Dioxide Level 22 mmol/L (22-29) Anion Gap 15.1 mmol/L (8-16) Blood Urea Nitrogen 15 mg/dL (7-26) Creatinine 0.93 mg/dL (0.57-1.11) Estimat Glomerular Filtration Rate > 60 ML/MIN (60-) BUN/Creatinine Ratio 16 (6-25) Glucose Level 94 mg/dL (74-118) Calcium Level 8.9 mg/dL (8.4-10.2) Total Bilirubin 0.2 mg/dL (0.2-1.2) Aspartate Amino Transf (AST/SGOT) 14 IU/L (5-34) Alanine Aminotransferase (ALT/SGPT) 15 IU/L (0-55) Alkaline Phosphatase 65 IU/L (40-150) Total Protein 7.4 g/dL (6.5-8.1) Albumin 4.0 g/dL (3.5-5.0) Globulin 3.4 g/dL (2.3-3.5) Albumin/Globulin Ratio 1.2 (0.8-2.0) Lab results reviewed: Yes Imaging Imaging results reviewed: Yes Impressions EXAM: CT Abdomen and Pelvis WITHOUT contrast INDICATION: Bilateral flank pain suspicious for obstructive renal/ureteral stones. COMPARISON: None. TECHNIQUE: Abdomen and pelvis were scanned utilizing a multidetector helical scanner from the lung base to the pubic symphysis without administration of IV contrast. Absence of intravenous contrast decreases sensitivity for detection of focal lesions and vascular pathology. Coronal and sagittal reformations were obtained. Routine protocol was performed. IV CONTRAST: None ORAL CONTRAST: None COMPLICATIONS: None RADIATION DOSE: Total DLP: 882 mGy*cm Estimated effective dose: (DLP x 0.015 x size factor) mSv CTDIvol has been reviewed. It is below the limits set by the Radiation Protocol Committee (RPC). Dose modulation, iterative reconstruction, and/or weight based adjustment of the mA/kV was utilized to reduce the radiation dose to as low as reasonably achievable. FINDINGS: LINES and TUBES: None. LOWER THORAX: There is bibasilar atelectasis. HEPATOBILIARY: No focal hepatic lesions. No biliary ductal dilation. GALLBLADDER: There are cholecystectomy clips. SPLEEN: No splenomegaly. PANCREAS: No focal masses or ductal dilatation. ADRENALS: No adrenal nodules KIDNEYS/URETERS: No hydronephrosis. No cystic or solid mass lesions. No stones. GI TRACT: No abnormal distention, wall thickening, or evidence of bowel obstruction. Appendix is normal. PELVIC ORGANS/BLADDER: Unremarkable. LYMPH NODES: No lymphadenopathy. VESSELS: Unremarkable. PERITONEUM / RETROPERITONEUM: No free air or fluid. BONES: Unremarkable. SOFT TISSUES: Unremarkable. IMPRESSION: 1. No obstructive renal or ureteral stones. 2. No acute abnormality in the abdomen/pelvis to explain the patient's symptoms were identified. Signed by: Dalia Li MD on 02/10/2020 8:19 AM Assessment & Plan Medical Decision Making MDM pt with bilateral flank pain rad to abd, recently started on Macrobid for UTI, h/o kidney stone years ago - check cbc, chem, ua/cx, CT abd/pelvis - r/o UTI unresponsive to Macrobid, ureterolithiasis, musculoskeletal pain Reassessment Reassessment given IVF's, Toradol, Morphine 2mg/Zofran -improved. LABS, UA, CT ALL NORMAL - RE-EXAMINATION - SHE DOES HAVE BILATERAL PARASPINAL MUSCLE SPASM/TENDERNESS AND SAYS PAIN WORSE WITH SIDE-SIDE OR TWISTING MOVEMENT. NO RADICULOPATHY, SHE HAD NO BLADDER INCONTINENCE HERE, WAS ABLE TO HOLD URINE AND GIVE UA SAMPLE, NO BOWEL INCONTINENCE, NORMAL NEURO EXAM AND NEG SLR, NL DTR'S. I WILL DC HOME WITH ROBAXIN/TRAMADOL, F/U PCP TOMORROW Assessment & Plan Final Impression: (1) Back pain Depart Disposition: HOME, SELF-CARE Last Vital Signs Date Time Temp Pulse Resp B/P (MAP) Pulse Ox O2 Delivery O2 Flow Rate FiO2 02/10/20 06:29 80 18 120/62 99 Room Air 02/10/20 06:01 98.5 Home Meds Reported Medications Acetaminophen With Codeine (TYLENOL WITH CODEINE #3 TABLET) 1 Each Tablet, 300 MG PO Q4HR PRN for MODERATE PAIN (4-6), TAB 01/13/19 Omeprazole (OMEPRAZOLE) 40 Mg Capsule.dr, 40 MG PO DAILY 01/13/19 Naproxen (NAPROXEN) 250 Mg Tablet, 500 MG PO BID PRN for MODERATE PAIN (4-6), TAB 01/13/19 Ondansetron Hcl* (ZOFRAN*) 4 Mg Tablet, 4 MG PO Q4HR PRN for NAUSEA 01/13/19 Medications in the ED Morphine Sulfate 2 mg ONCE STAT IV Last administered on 02/10/20at 06:29; Admin Dose 2 MG; Start 02/10/20 at 06:10; Stop 02/10/20 at 06:15; Status DC Ondansetron HCl 4 mg ONCE STAT IV Last administered on 02/10/20at 06:28; Admin Dose 4 MG; Start 02/10/20 at 06:10; Stop 02/10/20 at 06:15; Status DC Ketorolac Tromethamine 30 mg ONCE STAT IV Last administered on 02/10/20at 06:28; Admin Dose 30 MG; Start 02/10/20 at 06:10; Stop 02/10/20 at 06:15; Status DC Sodium Chloride 1,000 ml @ 0 mls/hr Q0M STAT IV Last administered on 02/10/20at 06:29; Admin Dose 999 MLS/HR; Start 02/10/20 at 06:10; Stop 02/10/20 at 06:14; Status DC TORRES PAREKH MD Feb 10, 2020 07:03
--- NOTE | 2020-02-10 08:23 | Diagnostic Imaging Report ---
EXAM: CT Abdomen and Pelvis WITHOUT contrast INDICATION: Bilateral flank pain suspicious for obstructive renal/ureteral stones. COMPARISON: None. TECHNIQUE: Abdomen and pelvis were scanned utilizing a multidetector helical scanner from the lung base to the pubic symphysis without administration of IV contrast. Absence of intravenous contrast decreases sensitivity for detection of focal lesions and vascular pathology. Coronal and sagittal reformations were obtained. Routine protocol was performed. IV CONTRAST: None ORAL CONTRAST: None COMPLICATIONS: None RADIATION DOSE: Total DLP: 882 mGy*cm Estimated effective dose: (DLP x 0.015 x size factor) mSv CTDIvol has been reviewed. It is below the limits set by the Radiation Protocol Committee (RPC). Dose modulation, iterative reconstruction, and/or weight based adjustment of the mA/kV was utilized to reduce the radiation dose to as low as reasonably achievable. FINDINGS: LINES and TUBES: None. LOWER THORAX: There is bibasilar atelectasis. HEPATOBILIARY: No focal hepatic lesions. No biliary ductal dilation. GALLBLADDER: There are cholecystectomy clips. SPLEEN: No splenomegaly. PANCREAS: No focal masses or ductal dilatation. ADRENALS: No adrenal nodules KIDNEYS/URETERS: No hydronephrosis. No cystic or solid mass lesions. No stones. GI TRACT: No abnormal distention, wall thickening, or evidence of bowel obstruction. Appendix is normal. PELVIC ORGANS/BLADDER: Unremarkable. LYMPH NODES: No lymphadenopathy. VESSELS: Unremarkable. PERITONEUM / RETROPERITONEUM: No free air or fluid. BONES: Unremarkable. SOFT TISSUES: Unremarkable. IMPRESSION: 1. No obstructive renal or ureteral stones. 2. No acute abnormality in the abdomen/pelvis to explain the patient's symptoms were identified. Signed by: Dalia Li MD on 02/10/2020 8:19 AM
== END 2020-02-10 09:00 | disposition home or self-care (01) ==
LOC: ER 06:13
DX: M54.5 Low back pain (principal); I10 Essential (primary) hypertension; E66.01 Morbid (severe) obesity due to excess calories
CPT/HCPCS: 36415; 74176; 80053; 81001; 81025; 85025; 99283; J1885; J2270; J2405; J7030

== ENCOUNTER 2022-08-23 02:17 | Emergency (ER) | payer BC ==
[~2022-08-23] VITALS: Ht 170.2 cm; Wt 124.7 kg
[2022-08-23] MEDS ORDERED: ONDANSETRON HCL INJ 2MG/ML 2ML 2 MG/ML VIAL IV STA (02:20)
[2022-08-23] MEDS ORDERED: SODIUM CHLORIDE 0.9% 1000ML 1,000 ML IV ONE (02:30)
[2022-08-23] MEDS ORDERED: Morphine 4mg INJECTION 4 MG/ML INJ IV ONE (02:30)
[2022-08-23 03:06] LABS: BASOPHILS # (AUTO) 0.1 (0.0-0.1); BASOPHILS % 0.3 % (0.0-1.0); EOSINOPHILS # (AUTO) 0.3 (0.0-0.4); EOSINOPHILS % 1.7 % (0.0-6.0); HEMATOCRIT 43.5 % (34.2-44.1); HEMOGLOBIN 14.5 g/dL (12.0-16.0); LYMPHOCYTES # (AUTO) 1.4 (1.0-3.2); LYMPHOCYTES % 9.5 % (18.0-39.1); MEAN CORPUSCULAR HEMOGLOBIN 31.6 pg (28-32); MEAN CORPUSCULAR HGB CONC 33.3 g/dL (31-35); MEAN CORPUSCULAR VOLUME 94.8 fL (81-99); MONOCYTES # (AUTO) 0.4 (0.2-0.8); MONOCYTES % 2.9 % (4.4-11.3); NEUTROPHILS # (AUTO) 12.4 (2.1-6.9); NEUTROPHILS % 85.3 % (38.7-80.0); PLATELET COUNT 349 x10e3/uL (140-360); RED BLOOD COUNT 4.59 x10e6/uL (3.6-5.1); RED CELL DISTRIBUTION WIDTH 12.9 % (11.7-14.4)
[2022-08-23 03:15] LABS: CLARITY,URINE CLEAR (CLEAR); COLOR,URINE YELLOW (YELLOW)
[2022-08-23 03:16] LABS: KETONES,URINE 1+ (NEGATIVE); LEUKOCYTE ESTERASE ,URINE NEGATIVE (NEGATIVE); NITRITE,URINE NEGATIVE (NEGATIVE); PROTEIN,URINE DIPSTICK 1+ (NEGATIVE); URINE UROBILINOGEN 1 mg/dL (0.2 - 1)
[2022-08-23 03:19] LABS: BACTERIA,URINE FEW /HPF; EPITHELIAL CELLS,URINE MODERATE /LPF; RBC,URINE 0-5 /HPF (0-5); WBC,URINE (MAN) 0-5 /HPF (0-5)
[2022-08-23 03:20] LABS: MUCUS,URINE MODERATE (RARE)
[2022-08-23 03:23] LABS: LIPASE 27 U/L (8-78)
[2022-08-23 03:26] LABS: ALANINE AMINOTRANSFERASE 19 IU/L (0-55); ALBUMIN 4.2 g/dL (3.5-5.0); ALBUMIN/GLOBULIN RATIO 1.2 (0.8-2.0); ALKALINE PHOSPHATASE 53 IU/L (40-150); ANION GAP 13.8 mmol/L (8-16); BLOOD UREA NITROGEN 6 mg/dL (7-26); BUN/CREATININE RATIO 7 (6-25); CALCIUM 9.4 mg/dL (8.4-10.2); CARBON DIOXIDE 22 mmol/L (22-29); CHLORIDE 108 mmol/L (98-107); CREATINE KINASE 109 IU/L (29-168); CREATININE, SERUM 0.85 mg/dL (0.57-1.11); GLUCOSE 123 mg/dL (74-118); POTASSIUM 3.8 mmol/L (3.5-5.1); SODIUM 140 mmol/L (136-145)
[2022-08-23] MEDS ORDERED: IOPAMIDOL 370 MG/ML 100 ML INFUS..BTL INJ ONE (03:33)
[2022-08-23] MEDS ORDERED: DICYCLOMINE HCL20 MG PO (04:45)
[2022-08-23] MEDS ORDERED: ONDANSETRON ODT4 MG PO (04:45)
[2022-08-23 04:51] VITALS: BP 123/80; PULSE 88; RESP 17; TEMP 98.1; O2SAT 100
== END 2022-08-23 05:05 | disposition home or self-care (01) ==
LOC: ER 02:20
DX: R10.12 Left upper quadrant pain (principal); A08.4 Viral intestinal infection, unspecified; R11.2 Nausea with vomiting, unspecified; I10 Essential (primary) hypertension; E66.01 Morbid (severe) obesity due to excess calories; R94.31 Abnormal electrocardiogram [ECG] [EKG]
CPT/HCPCS: 36415; 74177; 80053; 81001; 82550; 82553; 83690; 84484; 84702; 85025; 93005; 99284; C9113; J2270; J2405; J7030; Q9967